=== PATIENT | female | born 1950 | race Caucasian/White ===

== ENCOUNTER 2020-03-02 03:16 | Inpatient (IN) | payer OTHER, MEDICARE ==
[2020-03-02 03:57] LABS: Basophils # (A) 0.1 k/uL (0-0.2); Basophils % (A) 0 %; Eosinophils # (A) 0.3 k/uL (0-0.7); Eosinophils % (A) 1 %; HCT 37.2 % (34.0-46.0); HGB 11.8 gm/dL (11.4-16.0); Lymphocytes # (A) 1.6 k/uL (1.0-4.8); Lymphocytes % (A) 8 %; MCH 29.9 pg (25.0-35.0); MCHC 31.8 g/dL (31.0-37.0); Mean Platelet Volume 7.8; Monocytes % (A) 5 %; Neutrophils # (A) 16.6 k/uL (1.3-7.7); Neutrophils % (A) 84 %; Platelet Count 248 k/uL (150-450); RBC 3.96 m/uL (3.80-5.40); RDW 14.3 % (11.5-15.5); WBC 19.7 k/uL (3.8-10.6)
--- NOTE | 2020-03-02 04:03 | XR ---
EXAMINATION TYPE: XR chest 2V DATE OF EXAM: 03/02/2020 COMPARISON: 09/13/2017 HISTORY: Chest pain TECHNIQUE: FINDINGS: There is pulmonary interstitial edema. There is some blunting of the costophrenic angles. T here are sternal wires. There are chest leads. Bony thorax is intact. IMPRESSION: Congestive heart failure with small pleural effusions is a change compared to old exam.
[2020-03-02 04:10] LABS: Albumin 4.3 g/dL (3.5-5.0); Calcium 10.5 mg/dL (8.4-10.2); Potassium 4.8 mmol/L (3.5-5.1); Total Bilirubin 0.8 mg/dL (0.2-1.3); Total Protein 7.2 g/dL (6.3-8.2)
--- NOTE | 2020-03-02 04:22 | ED ---
SOB HPI - General Chief Complaint: Shortness of Breath Stated Complaint: DEBRA Time Seen by Provider: 03/02/20 03:29 Source: patient, EMS Mode of arrival: EMS Limitations: no limitations - History of Present Illness Initial Comments: Rebeca is a 70-year-old female with extensive cardiac history no known history of COPD though she doesn't that she is a former smoker. Patient is brought to the ER today by ambulance for evaluation of sudden onset of shortness of breath. Patient is currently staying at a friend's house because is no air conditioning at her house the EMS reports that the home she was in was very warm. Upon their arrival patient was in acute respiratory distress with one-word dyspnea, they're unable to establish oxygen saturation up with her on 12 L nonrebreather by the time they got her up to the ambulance reduction saturations were 94% on nonrebreather. Patient reports that the shortness breath began suddenly approximately 1 hour prior to calling EMS, progressively worsened. She states she may have had some brief sharp chest pain prior to the start but no longer is experiencing any chest pain or palpitations. She reports she felt nauseated when she was short of breath waiting for the ambulance, but it resolved when she got oxygen. She has not had any vomiting. No recent fevers or chills. No known sick contacts. - Related Data Home Medications Medication Instructions Recorded Confirmed Allopurinol [Zyloprim] 100 mg PO DAILY 08/03/15 09/21/17 HYDROcodone/APAP 10-325MG [[place] 1 tab PO Q6H PRN 08/03/15 09/21/17 10-325] Levothyroxine Sodium [Synthroid] 175 mcg PO DAILY 08/03/15 09/21/17 glipiZIDE [Glucotrol] 5 mg PO HS 08/03/15 09/21/17 glipiZIDE [Glucotrol] 10 mg PO QAM 08/03/15 09/21/17 Aspirin EC [Ecotrin Low Dose] 81 mg PO DAILY 09/21/17 09/21/17 Hydrochlorothiazide [Hydrodiuril] 50 mg PO DAILY 09/21/17 09/21/17 Melatonin 5 mg PO HS 09/21/17 09/21/17 Previous Rx's Medication Instructions Recorded Atorvastatin [Lipitor] 80 mg PO HS #30 tab 09/26/17 Clopidogrel [Plavix] 75 mg PO DAILY #30 tab 09/26/17 Metoprolol Tartrate [Lopressor] 50 mg PO BID #60 tab 09/26/17 Nitroglycerin Sl Tabs [Nitrostat] 0.4 mg SUBLINGUAL Q5M PRN #25 tab 09/26/17 Temazepam 7.5 mg PO HS PRN #5 cap 09/26/17 amLODIPine [Norvasc] 5 mg PO DAILY #30 tab 09/26/17 metFORMIN HCL [Glucophage] 1,000 mg PO BID #0 09/26/17 Allergies Allergy/AdvReac Type Severity Reaction Status Date / Time Sulfa (Sulfonamide Allergy Unknown Verified 03/02/20 03:26 Antibiotics) ibuprofen [From Motrin] AdvReac Nausea Verified 03/02/20 03:26 Review of Systems ROS Statement: Those systems with pertinent positive or pertinent negative responses have been documented in the HPI. ROS Other: All systems not noted in ROS Statement are negative. Past Medical History Past Medical History: Coronary Artery Disease (CAD), Diabetes Mellitus, Hyperlipidemia, Hypertension, Thyroid Disorder History of Any Multi-Drug Resistant Organisms: None Reported Past Surgical History: Coronary Bypass/CABG Additional Past Surgical History / Comment(s): aortic valve replacement-pig valve Past Anesthesia/Blood Transfusion Reactions: No Reported Reaction Past Psychological History: No Psychological Hx Reported Smoking Status: Former smoker Past Alcohol Use History: None Reported Past Drug Use History: None Reported General Exam - General Exam Comments Initial Comments: Physical Exam GENERAL: Patient is well-developed and well-nourished. Patient is nontoxic and well-hydrated and is in no distress. HENT: Normocephalic, Atraumatic. EYES: PERRL, EOMI PULMONARY: Mild expiratory wheezing CARDIOVASCULAR: There is a regular rate and rhythm without any murmurs gallops or rubs. ABDOMEN: Soft and nontender with normal bowel sounds. SKIN: Skin is clear with no lesions or rashes and otherwise unremarkable. : Deferred NEUROLOGIC: Patient is alert and oriented x3. Moving all extremities spontaneously MUSCULOSKELETAL: Normal extremities with adequate strength and full range of motion. No lower extremity swelling or edema. No calf tenderness. PSYCHIATRIC: Normal psychiatric evaluation. Limitations: no limitations Course Vital Signs 03/02/20 03/02/20 03/02/20 03:19 03:48 05:47 Temperature 98.5 F Pulse Rate 73 62 Respiratory 20 22 18 Rate Blood Pressure 149/80 126/49 O2 Sat by Pulse 98 Oximetry Medical Decision Making - Medical Decision Making Patient was seen and evaluated history is obtained from the patient History and physical exam are concerning for hypoxia, patient was placed on supplemental oxygen 4 L nasal cannula Labs are obtained patient has leukocytosis of unknown significance, detectable but not significantly elevated troponin, acute kidney injury Chest x-ray shows bilateral pleural effusions concerning for congestive heart failure which is new for this patient Patient was taken by wheelchair to the restroom and upon arrival back in the room was found to be hypoxic with an oxygen saturation of 85%, she was again placed on supplemental oxygen via nasal cannula The new onset of heart failure with hypoxia patient will be admitted to the hospital for supple been oxygen and further evaluation of her heart failure - Lab Data Result diagrams: 03/02/20 03:32 03/02/20 03:32 Lab Results 03/02/20 03/02/20 03/02/20 Range/Units 03:32 03:32 03:32 WBC 19.7 H (3.8-10.6) k/uL RBC 3.96 (3.80-5.40) m/uL Hgb 11.8 (11.4-16.0) gm/dL Hct 37.2 (34.0-46.0) % MCV 94.0 (80.0-100.0) fL MCH 29.9 (25.0-35.0) pg MCHC 31.8 (31.0-37.0) g/dL RDW 14.3 (11.5-15.5) % Plt Count 248 (150-450) k/uL Neutrophils % 84 % Lymphocytes % 8 % Monocytes % 5 % Eosinophils % 1 % Basophils % 0 % Neutrophils # 16.6 H (1.3-7.7) k/uL Lymphocytes # 1.6 (1.0-4.8) k/uL Monocytes # 1.0 (0-1.0) k/uL Eosinophils # 0.3 (0-0.7) k/uL Basophils # 0.1 (0-0.2) k/uL PT 10.1 (9.0-12.0) sec INR 1.0 (<1.2) APTT 20.8 L (22.0-30.0) sec Sodium 138 (137-145) mmol/L Potassium 4.8 (3.5-5.1) mmol/L Chloride 106 (98-107) mmol/L Carbon Dioxide 22 (22-30) mmol/L Anion Gap 10 mmol/L BUN 30 H (7-17) mg/dL Creatinine 1.14 H (0.52-1.04) mg/dL Est GFR (CKD-EPI)AfAm 56 (>60 ml/min/1.73 sqM) Est GFR (CKD-EPI)NonAf 48 (>60 ml/min/1.73 sqM) Glucose 303 H (74-99) mg/dL Plasma Lactic Acid Oliver (0.7-2.0) mmol/L Calcium 10.5 H (8.4-10.2) mg/dL Total Bilirubin 0.8 (0.2-1.3) mg/dL AST 26 (14-36) U/L ALT 29 (4-34) U/L Alkaline Phosphatase 135 H (38-126) U/L Troponin I (0.000-0.034) ng/mL NT-Pro-B Natriuret Pep pg/mL Total Protein 7.2 (6.3-8.2) g/dL Albumin 4.3 (3.5-5.0) g/dL 03/02/20 03/02/20 03/02/20 Range/Units 03:32 03:32 03:32 WBC (3.8-10.6) k/uL RBC (3.80-5.40) m/uL Hgb (11.4-16.0) gm/dL Hct (34.0-46.0) % MCV (80.0-100.0) fL MCH (25.0-35.0) pg MCHC (31.0-37.0) g/dL RDW (11.5-15.5) % Plt Count (150-450) k/uL Neutrophils % % Lymphocytes % % Monocytes % % Eosinophils % % Basophils % % Neutrophils # (1.3-7.7) k/uL Lymphocytes # (1.0-4.8) k/uL Monocytes # (0-1.0) k/uL Eosinophils # (0-0.7) k/uL Basophils # (0-0.2) k/uL PT (9.0-12.0) sec INR (<1.2) APTT (22.0-30.0) sec Sodium (137-145) mmol/L Potassium (3.5-5.1) mmol/L Chloride (98-107) mmol/L Carbon Dioxide (22-30) mmol/L Anion Gap mmol/L BUN (7-17) mg/dL Creatinine (0.52-1.04) mg/dL Est GFR (CKD-EPI)AfAm (>60 ml/min/1.73 sqM) Est GFR (CKD-EPI)NonAf (>60 ml/min/1.73 sqM) Glucose (74-99) mg/dL Plasma Lactic Acid Oliver 1.6 (0.7-2.0) mmol/L Calcium (8.4-10.2) mg/dL Total Bilirubin (0.2-1.3) mg/dL AST (14-36) U/L ALT (4-34) U/L Alkaline Phosphatase (38-126) U/L Troponin I 0.029 (0.000-0.034) ng/mL NT-Pro-B Natriuret Pep 984 pg/mL Total Protein (6.3-8.2) g/dL Albumin (3.5-5.0) g/dL - EKG Data -: EKG Interpreted by Me EKG Comments: EKG was obtained to complain of shortness of breath, EKG obtained at 3:25 AM, rate of 73 rhythm is sinus with a left bundle branch block, NE 170 QRS 136 QTC [address] elevations or depressions no evidence of acute ischemia or infarction. This EKG was compared to an EKG from August 2017 there is no significant change in morphology Disposition Clinical Impression: Congestive heart failure, BURKE (acute kidney injury), Hypoxia, Leukocytosis, Hyperglycemia Disposition: ADMITTED IP TO THIS HOSP Condition: Serious Referrals: [facility],Clinic [Primary Care Provider] - 1-2 days
[2020-03-02 04:32] LABS: Prothrombin Time 10.1 sec (9.0-12.0)
[2020-03-02 04:37] LABS: Partial Thromboplastin Time 20.8 sec (22.0-30.0)
[2020-03-02] MEDS ORDERED: FUROSEMIDE 10 MG/ML 4 ML VIAL IV SCH (06:00)
[2020-03-02] MEDS: INSULIN ASPART (NovoLOG) 100 UNIT/ML VIAL SQ SCH ×6 (08:06→21:01)
[2020-03-02 15:21] LABS: Glucose,Whole Blood 249 mg/dL (75-99)
[2020-03-02 15:30] LABS: Glucose,Whole Blood 288 mg/dL (75-99)
[2020-03-02] MEDS ORDERED: ACETAMINOPHEN TAB 500 MG TAB PO PRN (16:21)
[2020-03-02] MEDS ORDERED: NITROGLYCERIN SL TABS 0.4 MG TAB SUBLINGUAL PRN (16:21)
--- NOTE | 2020-03-02 16:30 | P.HPIM ---
History of Present Illness 68-year-old pleasant female came in with plaints of shortness of breath and orthopnea proximal nocturnal distended is comparing of cough without any significant sputum production. Patient apparently was having chest pain earlier today which is pressure-like sensation in the midsternal area. Patient's EKG is consistent with a left bundle branch block which is not new. Patient is bit obese her BNP is around 900 and patient has gone artery disease with cardiac catheterization 2018 patient remains on dual antiplatelet therapy did not miss any of her medications patient had stenting of left circumflex and RCA in the past. Patient had a normal ejection fraction the past. Chest x-ray showing mild pleural effusion and some interstitial pulmonary edema consistent with CHF, no evidence of pneumonia patient does have leukocytosis patient's serum creatinine is 1.14 baseline is around that. First set of troponin is negative. Patient the shortness of breath the sudden onset started today. Chest pain is nonexertional headrest nonradiating mild to moderate resolved at this time not associated diaphoresis nausea lightheadedness Review of Systems REVIEW OF SYSTEMS: CONSTITUTIONAL: No fever, no malaise, no fatigue. HEENT: No recent visual problems or hearing problems. Denied any sore throat. CARDIOVASCULAR: No orthopnea, PND, no palpitations, no syncope. PULMONARY: no hemoptysis. GASTROINTESTINAL: No diarrhea, no nausea, no vomiting, no abdominal pain. NEUROLOGICAL: No headaches, no weakness, no numbness. HEMATOLOGICAL: Denies any bleeding or petechiae. GENITOURINARY: Denies any burning micturition, frequency, or urgency. MUSCULOSKELETAL/RHEUMATOLOGICAL: Denies any joint pain, swelling, or any muscle pain. ENDOCRINE: Denies any polyuria or polydipsia. The rest of the 14-point review of systems is negative. Past Medical History Past Medical History: Coronary Artery Disease (CAD), CVA/TIA, Diabetes Mellitus, GERD/Reflux, Hyperlipidemia, Hypertension, Myocardial Infarction (NE), Osteoarthritis (OA), Thyroid Disorder, Vascular Disorder Additional Past Medical History / Comment(s): IDDM type II, neuropathy bilateral feet, CKD-pt states her labwork is being monitored, murmur, pt states she had prior CVA with no residual, past low back pain, gout bilateral great toes, R carpal tunnel syndrome, hypothyroid, UTI, constipation. Last Myocardial Infarction Date:: 2018 History of Any Multi-Drug Resistant Organisms: None Reported Past Surgical History: Adenoidectomy, Cardiac Valve Replacement, Coronary Bypass/CABG, Heart Catheterization, Joint Replacement, Orthopedic Surgery, Tonsillectomy Additional Past Surgical History / Comment(s): CABG/2 vessel-pt cannot recall year, PCI with 2 stents 2017, aortic valve replaced (pig valve), lumbar epidural injections, L knee arthroscopy, bilateral knee arthroplasty, R foot spur removed, D&C, colonoscopy Past Anesthesia/Blood Transfusion Reactions: Postoperative Nausea & Vomiting (PONV) Smoking Status: Former smoker - Past Family History Father History Unknown: Yes Additional Family Medical History / Comment(s): Father in a MVA when pt was a child. Mother Family Medical History: Coronary Artery Disease (CAD), Diabetes Mellitus Medications and Allergies Home Medications Medication Instructions Recorded Confirmed Type Allopurinol [Zyloprim] 100 mg PO DAILY 08/03/15 03/02/20 History Aspirin EC [Ecotrin Low Dose] 81 mg PO DAILY 09/21/17 03/02/20 History Atorvastatin [Lipitor] 80 mg PO HS #30 tab 09/26/17 03/02/20 Rx Clopidogrel [Plavix] 75 mg PO DAILY #30 tab 09/26/17 03/02/20 Rx Metoprolol Tartrate [Lopressor] 50 mg PO BID #60 tab 09/26/17 03/02/20 Rx Nitroglycerin Sl Tabs [Nitrostat] 0.4 mg SUBLINGUAL Q5M PRN #25 tab 09/26/17 03/02/20 Rx Acetaminophen Tab [Tylenol Tab] 500 mg PO BID PRN 03/02/20 03/02/20 History Amitriptyline HCl [Elavil] 50 mg PO HS 03/02/20 03/02/20 History Insulin Aspart [Insulin Aspart 20 unit SQ TID-W/MEALS 03/02/20 03/02/20 History Flexpen] Insulin Glargine,Hum.rec.anlog 60 unit SQ DAILY 03/02/20 03/02/20 History [Lantus Solostar] Levothyroxine Sodium [Synthroid] 250 mcg PO DAILY 03/02/20 03/02/20 History Losartan [Cozaar] 50 mg PO DAILY 03/02/20 03/02/20 History Polyethylene Glycol 3350 [Miralax] 17 gm PO DAILY 03/02/20 03/02/20 History amLODIPine [Norvasc] 10 mg PO DAILY 03/02/20 03/02/20 History Allergies Allergy/AdvReac Type Severity Reaction Status Date / Time Sulfa (Sulfonamide Allergy Unknown Verified 03/02/20 08:53 Antibiotics) ibuprofen [From Motrin] AdvReac Nausea Verified 03/02/20 08:53 Physical Exam Vitals: Vital Signs Temp Pulse Pulse Resp BP BP Pulse Ox 03/02/20 13:20 98.3 F 75 18 151/66 99 03/02/20 13:00 70 18 141/83 98 03/02/20 10:46 78 17 157/76 96 03/02/20 06:40 133/54 97 03/02/20 05:47 62 18 126/49 03/02/20 03:48 22 03/02/20 03:19 98.5 F 73 20 149/80 98 Intake and Output 03/02/20 03/02/20 03/02/20 06:59 14:59 22:59 Other: # Voids 2 Weight 106.594 kg 106.594 kg PHYSICAL EXAMINATION: GENERAL: The patient is alert and oriented x3, not in any acute distress. Obese HEENT: Pupils are round and equally reacting to light. EOMI. No scleral icterus. No conjunctival pallor. Normocephalic, atraumatic. No pharyngeal erythema. No thyromegaly. CARDIOVASCULAR: S1 and S2 present. No murmurs, rubs, or gallops. PULMONARY: Chest is clear to auscultation, no wheezing or crackles. ABDOMEN: Soft, nontender, nondistended, normoactive bowel sounds. No palpable organomegaly. MUSCULOSKELETAL: No joint swelling or deformity. EXTREMITIES: No cyanosis, clubbing, or pedal edema. NEUROLOGICAL: Gross neurological examination did not reveal any focal deficits. SKIN: No rashes. Results CBC & Chem 7: 03/02/20 03:32 03/02/20 03:32 Labs: Abnormal Lab Results - Last 24 Hours (Table) 03/02/20 03/02/20 03/02/20 Range/Units 03:32 03:32 03:32 WBC 19.7 H (3.8-10.6) k/uL Neutrophils # 16.6 H (1.3-7.7) k/uL APTT 20.8 L (22.0-30.0) sec BUN 30 H (7-17) mg/dL Creatinine 1.14 H (0.52-1.04) mg/dL Glucose 303 H (74-99) mg/dL POC Glucose (mg/dL) (75-99) mg/dL Calcium 10.5 H (8.4-10.2) mg/dL Alkaline Phosphatase 135 H (38-126) U/L 03/02/20 03/02/20 Range/Units 08:00 12:23 WBC (3.8-10.6) k/uL Neutrophils # (1.3-7.7) k/uL APTT (22.0-30.0) sec BUN (7-17) mg/dL Creatinine (0.52-1.04) mg/dL Glucose (74-99) mg/dL POC Glucose (mg/dL) 288 H 249 H (75-99) mg/dL Calcium (8.4-10.2) mg/dL Alkaline Phosphatase (38-126) U/L Thrombosis Risk Factor Assmnt - Choose All That Apply Any of the Below Risk Factors Present?: Yes Each Factor Represents 1 point: Obesity (BMI >25), Swollen legs (current), Varicose veins Each Risk Factor Represents 2 Points: Age 61-74 years Each Risk Factor Represents 3 Points: Positive Lupus Anticoagulant Thrombosis Risk Factor Assessment Total Risk Factor Score: 8 Thrombosis Risk Factor Assessment Level: High Risk Assessment and Plan Plan: -Shortness of breath: Etiology is not clear that there is a competent of CHF I'll obtain echocardiogram patient will be started on Lasix other concern is angina acute coronary syndrome. We will obtain 2 more sets of troponins and EKG cardiology will be consulted. No evidence of COPD exacerbation at this time. I'll also obtain a d-dimer. 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
[2020-03-02] MEDS: ATORVASTATIN 80 MG TAB PO SCH (21:01)
[2020-03-02] MEDS: METOPROLOL TARTRATE 50 MG TAB PO SCH (21:01)
[2020-03-02] MEDS: AMITRIPTYLINE HCL 50 MG TAB PO SCH (21:01)
[2020-03-02] MEDS: FUROSEMIDE 10 MG/ML 4 ML VIAL IV SCH (21:02)
[2020-03-03 07:23] LABS: HCT 30.5 % (34.0-46.0); HGB 10.2 gm/dL (11.4-16.0); MCH 31.1 pg (25.0-35.0); MCHC 33.6 g/dL (31.0-37.0); MCV 92.8 fL (80.0-100.0); Mean Platelet Volume 7.3; Platelet Count 220 k/uL (150-450); RBC 3.29 m/uL (3.80-5.40); RDW 14.1 % (11.5-15.5); WBC 11.8 k/uL (3.8-10.6)
[2020-03-03 07:24] LABS: Glucose,Whole Blood 165 mg/dL (75-99)
[2020-03-03] MEDS: LEVOTHYROXINE 125 MCG TAB PO SCH (07:28)
[2020-03-03 07:38] LABS: Calcium 10.1 mg/dL (8.4-10.2); Potassium 4.4 mmol/L (3.5-5.1)
[2020-03-03] MEDS: INSULIN ASPART (NovoLOG) 100 UNIT/ML VIAL SQ SCH ×7 (08:26→21:41)
[2020-03-03] MEDS: FUROSEMIDE 10 MG/ML 4 ML VIAL IV SCH (09:56)
[2020-03-03] MEDS: LOSARTAN 50 MG TAB PO SCH (09:56)
[2020-03-03] MEDS: ASPIRIN 81 MG PO SCH (09:56)
[2020-03-03] MEDS: ALLOPURINOL 100 MG TAB PO SCH (09:56)
[2020-03-03] MEDS: CLOPIDOGREL 75 MG TAB PO SCH (09:56)
[2020-03-03] MEDS: ENOXAPARIN 40 MG/0.4 ML SYRINGE SQ SCH (09:56)
[2020-03-03] MEDS: METOPROLOL TARTRATE 50 MG TAB PO SCH ×2 (09:56→21:41)
[2020-03-03] MEDS: INSULIN DETEMIR (LEVEMIR) 100 UNIT/ML SYR SQ SCH (09:57)
[2020-03-03] MEDS: POLYETHYLENE GLYCOL 3350 17 GM POWD.PACK PO SCH (09:57)
[2020-03-03 12:07] LABS: Glucose,Whole Blood 191 mg/dL (75-99)
--- NOTE | 2020-03-03 13:53 | P.CRDCN ---
History of Present Illness Consult date: 03/03/20 Consult reason: congestive heart failure Chief complaint: Chest pressure and shortness of breath History of present illness: This is a pleasant 70-year-old female who follows with Dr. VC Medina the office. She has a history of hypertension, diabetes, hyperlipidemia, prior coronary artery bypass grafting surgery and aortic valve replacement, most recent cardiac catheterization was performed in February 2018, it revealed that the vein grafts were occluded, patent GIRON to the LAD, patient at that time underwent stenting of the circumflex and mid right coronary artery. Prior history of smoking, COPD. Presents to the hospital with a fairly sudden onset of shortness of breath and chest pressure which woke her up from sleep in the middle of the night. She does state that prior to that her breathing overall was stable and she has not been experiencing any chest pressure. Her oxygen saturation in the emergency room was 85%. Chest x-ray showed CHF with small bilateral pleural effusions. EKG showed a normal sinus rhythm with a left bundle-branch block pattern. BNP level on admission 1983. Troponin 0.02, 0.98, 0.96. D-dimer 1.5. White blood cell count on admission 19.7, hemoglobin 11.8, platelet count 248. This morning white blood cell count 11.8, hemoglobin 10.2, platelet count 220. Sodium 138, potassium 4.4, BUN 34, creatinine 1.2. Blood pressure 133/60 with a heart rate in the 70s, respirations 16, 95% on 2 L of oxygen. At the time of my examination, patient denies any chest pressure at present, she does still feel somewhat short of breath. Past Medical History Past Medical History: Coronary Artery Disease (CAD), CVA/TIA, Diabetes Mellitus, GERD/Reflux, Hyperlipidemia, Hypertension, Myocardial Infarction (PA), Osteoarthritis (OA), Thyroid Disorder, Vascular Disorder Additional Past Medical History / Comment(s): IDDM type II, neuropathy bilateral feet, CKD-pt states her labwork is being monitored, murmur, pt states she had prior CVA with no residual, past low back pain, gout bilateral great toes, R carpal tunnel syndrome, hypothyroid, UTI, constipation. Last Myocardial Infarction Date:: 2017 History of Any Multi-Drug Resistant Organisms: None Reported Past Surgical History: Adenoidectomy, Cardiac Valve Replacement, Coronary Bypas s/CABG, Heart Catheterization, Joint Replacement, Orthopedic Surgery, Tonsillectomy Additional Past Surgical History / Comment(s): CABG/2 vessel-pt cannot recall year, PCI with 2 stents 2017, aortic valve replaced (pig valve), lumbar epidural injections, L knee arthroscopy, bilateral knee arthroplasty, R foot spur removed, D&C, colonoscopy Past Anesthesia/Blood Transfusion Reactions: Postoperative Nausea & Vomiting (PONV) Smoking Status: Former smoker - Past Family History Father History Unknown: Yes Additional Family Medical History / Comment(s): Father in a MVA when pt was a child. Mother Family Medical History: Coronary Artery Disease (CAD), Diabetes Mellitus Medications and Allergies Home Medications Medication Instructions Recorded Confirmed Type Allopurinol [Zyloprim] 100 mg PO DAILY 08/03/15 03/02/20 History Aspirin EC [Ecotrin Low Dose] 81 mg PO DAILY 09/21/17 03/02/20 History Atorvastatin [Lipitor] 80 mg PO HS #30 tab 09/26/17 03/02/20 Rx Clopidogrel [Plavix] 75 mg PO DAILY #30 tab 09/26/17 03/02/20 Rx Metoprolol Tartrate [Lopressor] 50 mg PO BID #60 tab 09/26/17 03/02/20 Rx Nitroglycerin Sl Tabs [Nitrostat] 0.4 mg SUBLINGUAL Q5M PRN #25 tab 09/26/17 03/02/20 Rx Acetaminophen Tab [Tylenol Tab] 500 mg PO BID PRN 03/02/20 03/02/20 History Amitriptyline HCl [Elavil] 50 mg PO HS 03/02/20 03/02/20 History Insulin Aspart [Insulin Aspart 20 unit SQ TID-W/MEALS 03/02/20 03/02/20 History Flexpen] Insulin Glargine,Hum.rec.anlog 60 unit SQ DAILY 03/02/20 03/02/20 History [Lantus Solostar] Levothyroxine Sodium [Synthroid] 250 mcg PO DAILY 03/02/20 03/02/20 History Losartan [Cozaar] 50 mg PO DAILY 03/02/20 03/02/20 History Polyethylene Glycol 3350 [Miralax] 17 gm PO DAILY 03/02/20 03/02/20 History amLODIPine [Norvasc] 10 mg PO DAILY 03/02/20 03/02/20 History Allergies Allergy/AdvReac Type Severity Reaction Status Date / Time Sulfa (Sulfonamide Allergy Unknown Verified 03/02/20 08:53 Antibiotics) ibuprofen [From Motrin] AdvReac Nausea Verified 03/02/20 08:53 Physical Exam Vitals: Vital Signs Temp Pulse Resp BP Pulse Ox 03/03/20 12:00 66 20 03/03/20 08:00 97.7 F 66 20 151/69 98 03/03/20 04:00 97.6 F 73 16 133/60 95 03/02/20 23:33 97.8 F 64 16 141/64 95 03/02/20 20:00 97.7 F 74 17 153/65 98 03/02/20 16:00 97.5 F L 73 18 146/66 99 Intake and Output 03/02/20 03/03/20 03/03/20 22:59 06:59 14:59 Intake Total 240 Balance 240 Intake: Oral 240 Other: Voiding Method Toilet Toilet Toilet # Voids 2 1 1 Weight 109.4 kg 109.4 kg PHYSICAL EXAMINATION: GENERAL: 70-year-old female in no acute distress at the time of my examination HEENT: Head is atraumatic, normocephalic. Pupils equal, round. Sclera anicteric. Conjunctiva are clear. Mucous membranes of the mouth are moist. Neck is supple. There is elevated jugular venous pressure. Bilateral carotid bruit is heard. HEART EXAMINATION: Heart S1 S2 1 systolic ejection murmur is heard CHEST EXAMINATION: Lungs are clear with mild diminished air entry to the bases. No chest wall tenderness is noted on palpation or with deep breathing. ABDOMEN: Soft, nontender. Bowel sounds are heard. No organomegaly noted. EXTREMITIES: 2+ peripheral pulses with trace evidence of peripheral edema and no calf tenderness noted. NEUROLOGIC patient is awake, alert and oriented X3. . Results 03/03/20 06:47 03/03/20 06:47 Cardiac Enzymes 03/02/20 03/02/20 Range/Units 20:00 23:09 Troponin I 0.980 H* 0.966 H* (0.000-0.034) ng/mL CBC 03/03/20 Range/Units 06:47 WBC 11.8 H (3.8-10.6) k/uL RBC 3.29 L (3.80-5.40) m/uL Hgb 10.2 L (11.4-16.0) gm/dL Hct 30.5 L (34.0-46.0) % Plt Count 220 (150-450) k/uL Comprehensive Metabolic Panel 03/03/20 Range/Units 06:47 Sodium 138 (137-145) mmol/L Potassium 4.4 (3.5-5.1) mmol/L Chloride 106 (98-107) mmol/L Carbon Dioxide 25 (22-30) mmol/L BUN 34 H (7-17) mg/dL Creatinine 1.21 H (0.52-1.04) mg/dL Glucose 157 H (74-99) mg/dL Calcium 10.1 (8.4-10.2) mg/dL Current Medications Generic Name Dose Route Start Last Admin Trade Name Freq PRN Reason Stop Dose Admin Acetaminophen 500 mg 03/02/20 16:21 Tylenol Tab PO BID PRN Pain or Fever > 100.5 Allopurinol 100 mg 03/03/20 09:00 03/03/20 09:56 Zyloprim PO 100 mg DAILY PATRICK Administration Amitriptyline HCl 50 mg 03/02/20 21:00 03/02/20 21:01 Elavil PO 50 mg HS PATRICK Administration Aspirin 81 mg 03/03/20 09:00 03/03/20 09:56 Aspirin PO 81 mg DAILY PATRICK Administration Atorvastatin Calcium 80 mg 03/02/20 21:00 03/02/20 21:01 Lipitor PO 80 mg HS PATRICK Administration Clopidogrel Bisulfate 75 mg 03/03/20 09:00 03/03/20 09:56 Plavix PO 75 mg DAILY PATRICK Administration Enoxaparin Sodium 40 mg 03/03/20 09:00 03/03/20 09:56 Lovenox SQ 40 mg DAILY PATRICK Administration Insulin Aspart 0 unit 03/02/20 07:30 03/03/20 12:57 Novolog SQ 3 unit ACHS PATRICK Administration Protocol Insulin Aspart 20 unit 03/02/20 17:30 03/03/20 12:56 Novolog SQ 20 unit TID-W/MEALS PATRICK Administration Insulin Detemir 60 unit 03/03/20 07:00 03/03/20 09:57 Levemir SQ 60 unit DAILY@0700 PATRICK Administration Levothyroxine Sodium 250 mcg 03/03/20 06:30 03/03/20 07:28 Synthroid PO 250 mcg 0630 PATRICK Administration Losartan Potassium 50 mg 03/03/20 09:00 03/03/20 09:56 Cozaar PO 50 mg DAILY PATRICK Administration Metoprolol Tartrate 50 mg 03/02/20 21:00 03/03/20 09:56 Lopressor PO 50 mg BID PATRICK Administration Nitroglycerin 0.4 mg 03/02/20 16:21 Nitrostat SUBLINGUAL Q5M PRN Chest Pain Polyethylene Glycol 17 gm 03/03/20 09:00 03/03/20 09:57 Miralax PO 17 gm DAILY PATRICK Administration Intake and Output 03/02/20 03/03/20 03/03/20 22:59 06:59 14:59 Intake Total 240 Balance 240 Intake: Oral 240 Other: Voiding Method Toilet Toilet Toilet # Voids 2 1 1 Weight 109.4 kg 109.4 kg Patient Weight 03/04/20 06:59 Weight 109.4 kg 03/03/20 06:47 03/03/20 06:47 EKG Interpretations (text) EKG shows a normal sinus rhythm with a left bundle-branch block pattern Assessment and Plan Plan: Assessment and plan #1 symptoms of shortness of breath with associated chest pressure. Mild element of congestive cardiac failure, we will start a low-dose of IV Lasix. D-dimer is also positive, we'll request a CTA of the chest to rule out PE. Troponins 0.029, 0.98, 0.966. Possible acute coronary syndrome. #2 hypertension #3 diabetes #4 hyperlipidemia #5 coronary artery disease with prior bypass surgery, most recent cardiac catheterization in 2018 patient underwent stenting of the circumflex and mid RCA, at that time the vein grafts were occluded, patent GIRON to the LAD #6 aortic valve replacement #7 prior history of smoking #8 COPD Plan We will start the patient on IV diuretics for today, she will need to undergo cardiac catheterization, the risks and the benefits were explained to her in detail, this will tentatively be booked on Friday. We will also request a CTA of the chest be performed to rule out the possibility of pulmonary embolism. Further recommendations to follow. DNP note has been reviewed, I agree with a documented findings and plan of care. Patient was seen and examined.
--- NOTE | 2020-03-03 14:06 | P.PN ---
Subjective Progress Note Date: 03/03/20 Principal diagnosis: 68-year-old pleasant female came in with plaints of shortness of breath and orthopnea proximal nocturnal distended is comparing of cough without any significant sputum production. Patient apparently was having chest pain earlier today which is pressure-like sensation in the midsternal area. Patient's EKG is consistent with a left bundle branch block which is not new. Patient is bit obese her BNP is around 900 and patient has gone artery disease with cardiac catheterization 2017 patient remains on dual antiplatelet therapy did not miss any of her medications patient had stenting of left circumflex and RCA in the past. Patient had a normal ejection fraction the past. Chest x-ray showing mild pleural effusion and some interstitial pulmonary edema consistent with CHF, no evidence of pneumonia patient does have leukocytosis patient's serum creatin ine is 1.14 baseline is around that. First set of troponin is negative. Patient the shortness of breath the sudden onset started today. Chest pain is nonexertional headrest nonradiating mild to moderate resolved at this time not associated diaphoresis nausea lightheadedness 03/03/2020 Patient is seen and evaluated in follow-up and currently remains on 4 L of oxygen via nasal cannula. Patient is being seen and evaluated by cardiology and echo has been obtained but is currently pending. Patient had some elevated troponins and patient will potentially need cardiac catheterization. Patient had a chest x-ray showing some mild pleural effusions along with urinary edema and was initiated on Lasix although was discontinued. Current creatinine is slightly elevated at 1.21. Currently patient denies any chest pain, worsening shortness of breath, or palpitations. Patient is afebrile. No reports of nausea or vomiting and patient is tolerating diet. Patient also had a d-dimer which was elevated and will be obtaining a CTA to assess for pulmonary embolism. Objective - Vital Signs Vital signs: Vital Signs Temp 97.7 F 03/03/20 08:00 Pulse 66 03/03/20 12:00 Resp 20 03/03/20 12:00 BP 151/69 03/03/20 08:00 Pulse Ox 98 03/03/20 08:00 Intake & Output 03/02/20 03/03/20 03/03/20 18:59 06:59 18:59 Intake Total 240 Balance 240 Weight 106.594 kg 109.4 kg 109.4 kg Intake: Oral 240 Other: Voiding Method Toilet Toilet # Voids 2 1 1 - Exam GENERAL: The patient is alert and oriented x3, not in any acute distress. Obese HEENT: Pupils are round and equally reacting to light. EOMI. No scleral icterus. No conjunctival pallor. Normocephalic, atraumatic. No pharyngeal erythema. No thyromegaly. CARDIOVASCULAR: S1 and S2 present. No murmurs, rubs, or gallops. PULMONARY: Chest is clear to auscultation, no wheezing or crackles. ABDOMEN: Soft, nontender, nondistended, normoactive bowel sounds. No palpable organomegaly. MUSCULOSKELETAL: No joint swelling or deformity. EXTREMITIES: No cyanosis, clubbing, or pedal edema. NEUROLOGICAL: Gross neurological examination did not reveal any focal deficits. SKIN: No rashes. - Labs CBC & Chem 7: 03/03/20 06:47 03/03/20 06:47 Labs: Abnormal Lab Results - Last 24 Hours (Table) 03/02/20 03/02/20 03/02/20 Range/Units 08:00 12:23 18:35 WBC (3.8-10.6) k/uL RBC (3.80-5.40) m/uL Hgb (11.4-16.0) gm/dL Hct (34.0-46.0) % D-Dimer 1.59 H (<0.60) mg/L FEU BUN (7-17) mg/dL Creatinine (0.52-1.04) mg/dL Glucose (74-99) mg/dL POC Glucose (mg/dL) 288 H 249 H (75-99) mg/dL Troponin I (0.000-0.034) ng/mL 03/02/20 03/02/20 03/03/20 Range/Units 20:00 23:09 06:47 WBC 11.8 H (3.8-10.6) k/uL RBC 3.29 L (3.80-5.40) m/uL Hgb 10.2 L (11.4-16.0) gm/dL Hct 30.5 L (34.0-46.0) % D-Dimer (<0.60) mg/L FEU BUN (7-17) mg/dL Creatinine (0.52-1.04) mg/dL Glucose (74-99) mg/dL POC Glucose (mg/dL) (75-99) mg/dL Troponin I 0.980 H* 0.966 H* (0.000-0.034) ng/mL 03/03/20 03/03/20 03/03/20 Range/Units 06:47 07:22 12:05 WBC (3.8-10.6) k/uL RBC (3.80-5.40) m/uL Hgb (11.4-16.0) gm/dL Hct (34.0-46.0) % D-Dimer (<0.60) mg/L FEU BUN 34 H (7-17) mg/dL Creatinine 1.21 H (0.52-1.04) mg/dL Glucose 157 H (74-99) mg/dL POC Glucose (mg/dL) 165 H 191 H (75-99) mg/dL Troponin I (0.000-0.034) ng/mL Assessment and Plan Assessment: -Shortness of breath: Etiology is not clear that there is a component of CHF, echo obtained in currently pending. Cardiology following. Patient was initiated on IV Lasix and discontinued at this time. 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 Cardiology following. Echo ordered and currently pending at this time. Patient had some elevated troponins and may possibly need cardiac catheterization in the near future. Tentatively scheduled for Friday. Will continue to monitor labs and vital signs closely. D-dimer was elevated at 1.59 and will obtain CTA to assess for possible PE. Patient is maintained on aspirin and Plavix and will continue at this time. Further recommendations to follow.
[2020-03-03 14:09] LABS: Glucose,Whole Blood 233 mg/dL (75-99)
[2020-03-03 14:09] LABS: Glucose,Whole Blood 244 mg/dL (75-99)
[2020-03-03 16:37] LABS: Glucose,Whole Blood 144 mg/dL (75-99)
--- NOTE | 2020-03-03 16:54 | CT ---
EXAMINATION TYPE: CT angio chest DATE OF EXAM: 03/03/2020 4:29 PM COMPARISON: X-ray 03/02/2020 HISTORY: Difficulty breathing. CT DLP: 607.3 mGycm Automated exposure control for dose reduction was used. CONTRAST: CTA scan of the thorax is performed with IV Contrast, patient injected with 80 mL of Isovue 370, pulm onary embolism protocol. . FINDINGS: LUNGS: There are diffuse interstitial pattern and groundglass changes with bilateral consolidation an d small effusion. No pneumothorax. MEDIASTINUM: Assessment aorta is markedly limited due to extensive overlying artifact appears to be g rossly of normal caliber. Artifact at the level of the origin of the pulmonary artery limits its asse ssment. Right main pulmonary artery also limited. Linear density at the origin of the pulmonary arter y likely related to pulmonic valve. Remaining portion of the pulmonary artery appear to be patent wit h normal enhancement. Calcified lymph nodes are seen in the hilum. Heart is prominent with no sizable pericardial effusion. Sternotomy changes are noted. OTHER: Tiny granuloma seen in the liver and spleen and there is a tiny gallstone. Hypertrophic and d egenerative change of the spine. IMPRESSION: Limited exam due to extensive artifact 1. Bilateral effusion and consolidation correlate for CHF. 2. Artifact limits portions of the pulmonary arteries including the proximal main pulmonary artery an d the right main pulmonary artery. Linear defect involving the proximal main pulmonary artery is note d but this could possibly be related artifact and/or the pulmonic valve. Cannot exclude a pulmonary e mbolism within the proximal secondary branch of the right upper lobe pulmonary artery. Given limitati on exam recommended follow-up VQ scan.
[2020-03-03 20:41] LABS: Glucose,Whole Blood 182 mg/dL (75-99)
[2020-03-03] MEDS: ATORVASTATIN 80 MG TAB PO SCH (21:41)
[2020-03-03] MEDS: AMITRIPTYLINE HCL 50 MG TAB PO SCH (21:41)
[2020-03-04] MEDS: LEVOTHYROXINE 125 MCG TAB PO SCH (05:55)
[2020-03-04 06:39] LABS: Glucose,Whole Blood 92 mg/dL (75-99)
[2020-03-04 06:49] LABS: Basophils % (A) 1 %; Eosinophils # (A) 0.3 k/uL (0-0.7); Eosinophils % (A) 3 %; HGB 11.3 gm/dL (11.4-16.0); Lymphocytes # (A) 2.3 k/uL (1.0-4.8); Lymphocytes % (A) 23 %; MCH 31.8 pg (25.0-35.0); MCHC 34.2 g/dL (31.0-37.0); MCV 93.1 fL (80.0-100.0); Mean Platelet Volume 7.4; Monocytes # (A) 0.6 k/uL (0-1.0); Monocytes % (A) 6 %; Neutrophils # (A) 6.7 k/uL (1.3-7.7); Neutrophils % (A) 67 %; Platelet Count 249 k/uL (150-450); RBC 3.55 m/uL (3.80-5.40); RDW 14.1 % (11.5-15.5)
[2020-03-04] MEDS: INSULIN DETEMIR (LEVEMIR) 100 UNIT/ML SYR SQ SCH (06:50)
[2020-03-04 07:03] LABS: Calcium 10.4 mg/dL (8.4-10.2); Potassium 4.2 mmol/L (3.5-5.1)
[2020-03-04] MEDS: INSULIN ASPART (NovoLOG) 100 UNIT/ML VIAL SQ SCH ×7 (07:23→21:20)
--- NOTE | 2020-03-04 09:10 | NM ---
EXAMINATION TYPE: NM pul vent and perfuse DATE OF EXAM: 03/04/2020 COMPARISON: NONE HISTORY: Elevated d-dimer, shortness of breath TECHNIQUE: Utilizing inhalation of 36.3 mCi Tc 99m DTPA aerosol and intravenous injection of 4.3 mCi of Tc 99m MAA, ventilation and perfusion images are acquired post injection in multiple projections. FINDINGS: Normal radiotracer distribution is noted in the lungs. There is no evidence of mismatched defects. IMPRESSION: Very low probability for pulmonary embolism.
[2020-03-04] MEDS: METOPROLOL TARTRATE 50 MG TAB PO SCH ×2 (09:14→20:10)
[2020-03-04] MEDS: ASPIRIN 81 MG PO SCH (09:14)
[2020-03-04] MEDS: CLOPIDOGREL 75 MG TAB PO SCH (09:14)
[2020-03-04] MEDS: ENOXAPARIN 40 MG/0.4 ML SYRINGE SQ SCH (09:14)
[2020-03-04] MEDS: LOSARTAN 50 MG TAB PO SCH (09:14)
[2020-03-04] MEDS: ALLOPURINOL 100 MG TAB PO SCH (09:14)
[2020-03-04] MEDS: POLYETHYLENE GLYCOL 3350 17 GM POWD.PACK PO SCH (10:52)
--- NOTE | 2020-03-04 11:17 | P.PN ---
Subjective 68-year-old pleasant female came in with plaints of shortness of breath and orthopnea proximal nocturnal distended is comparing of cough without any significant sputum production. Patient apparently was having chest pain earlier today which is pressure-like sensation in the midsternal area. Patient's EKG is consistent with a left bundle branch block which is not new. Patient is bit obese her BNP is around 900 and patient has gone artery disease with cardiac catheterization 2018 patient remains on dual antiplatelet therapy did not miss any of her medications patient had stenting of left circumflex and RCA in the past. Patient had a normal ejection fraction the past. Chest x-ray showing mild pleural effusion and some interstitial pulmonary edema consistent with CHF, no evidence of pneumonia patient does have leukocytosis patient's serum creatinine is 1.14 baseline is around that. First set of troponin is negative. Patient the shortness of breath the sudden onset started today. Chest pain is nonexertional headrest nonradiating mild to moderate resolved at this time not associated diaphoresis nausea lightheadedness 03/03/2020 Patient is seen and evaluated in follow-up and currently remains on 4 L of oxygen via nasal cannula. Patient is being seen and evaluated by cardiology and echo has been obtained but is currently pending. Patient had some elevated troponins and patient will potentially need cardiac catheterization. Patient had a chest x-ray showing some mild pleural effusions along with urinary edema and was initiated on Lasix although was discontinued. Current creatinine is slightly elevated at 1.21. Currently patient denies any chest pain, worsening shortness of breath, or palpitations. Patient is afebrile. No reports of nausea or vomiting and patient is tolerating diet. Patient also had a d-dimer which was elevated and will be obtaining a CTA to assess for pulmonary embolism. 03/04/2020 Valerie patient's creatinine is bit worse and spread which is started on Lasix because CT angios the chest is showing some pulmonary edema VQ scan showed low probably for PE and not sure why VQ scan was obtained as well. Since the patient's creatinine went up I'm holding on angiotensin receptor eder temp orarily. Patient is scheduled to undergo cardiac catheterization on Friday. Constitutional: Denied any fatigue denied any fever. Cardio vascular: denied any chest pain, palpitations Gastrointestinal denied any nausea vomiting Pulmonary: shortness of breath improved significantly Neurologic denied any new focal deficits All inpatient medications were reviewed and appropriate changes in these med ications as dictated in the interval history and assessment and plan. Objective - Vital Signs Vital signs: Vital Signs Temp 97.7 F 03/04/20 08:00 Pulse 64 03/04/20 08:00 Resp 18 03/04/20 08:00 BP 135/61 03/04/20 08:00 Pulse Ox 94 L 03/04/20 08:00 Intake & Output 03/03/20 03/04/20 03/04/20 18:59 06:59 18:59 Intake Total 360 240 Balance 360 240 Weight 109.4 kg 108.5 kg Intake: Oral 360 240 Other: Voiding Method Toilet Toilet Toilet # Voids 3 1 - Exam GENERAL: The patient is alert and oriented x3, not in any acute distress. Obese HEENT: Pupils are round and equally reacting to light. EOMI. No scleral icterus. No conjunctival pallor. Normocephalic, atraumatic. No pharyngeal erythema. No thyromegaly. CARDIOVASCULAR: S1 and S2 present. No murmurs, rubs, or gallops. PULMONARY: Chest is clear to auscultation, no wheezing or crackles. ABDOMEN: Soft, nontender, nondistended, normoactive bowel sounds. No palpable organomegaly. MUSCULOSKELETAL: No joint swelling or deformity. EXTREMITIES: No cyanosis, clubbing, or pedal edema. NEUROLOGICAL: Gross neurological examination did not reveal any focal deficits. SKIN: No rashes. - Labs CBC & Chem 7: 03/04/20 06:00 03/04/20 06:00 Labs: Abnormal Lab Results - Last 24 Hours (Table) 03/02/20 03/02/20 03/03/20 Range/Units 16:33 20:56 12:05 RBC (3.80-5.40) m/uL Hgb (11.4-16.0) gm/dL Hct (34.0-46.0) % BUN (7-17) mg/dL Creatinine (0.52-1.04) mg/dL POC Glucose (mg/dL) 244 H 233 H 191 H (75-99) mg/dL Calcium (8.4-10.2) mg/dL 03/03/20 03/03/20 03/04/20 Range/Units 16:36 20:39 06:00 RBC 3.55 L (3.80-5.40) m/uL Hgb 11.3 L (11.4-16.0) gm/dL Hct 33.0 L (34.0-46.0) % BUN (7-17) mg/dL Creatinine (0.52-1.04) mg/dL POC Glucose (mg/dL) 144 H 182 H (75-99) mg/dL Calcium (8.4-10.2) mg/dL 03/04/20 Range/Units 06:00 RBC (3.80-5.40) m/uL Hgb (11.4-16.0) gm/dL Hct (34.0-46.0) % BUN 41 H (7-17) mg/dL Creatinine 1.42 H (0.52-1.04) mg/dL POC Glucose (mg/dL) (75-99) mg/dL Calcium 10.4 H (8.4-10.2) mg/dL Assessment and Plan Plan: -Shortness of breath: secondary to acute coronary syndrome, non-ST elevation myocardial infarction, mild CHF exacerbation patient will continue her Lasix hold off losartan because of the kidney function and she'll undergo cardiac catheterization Friday -Chest pain: possibly secondary to non-ST elevation myocardial infarction 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
[2020-03-04 12:24] LABS: Glucose,Whole Blood 178 mg/dL (75-99)
[2020-03-04] MEDS: FUROSEMIDE 10 MG/ML 2 ML VIAL IV SCH ×2 (12:25→20:10)
--- NOTE | 2020-03-04 14:20 | P.PN ---
Subjective Progress Note Date: 03/04/20 This is a pleasant 70-year-old female who follows with Dr. VC Medina the office. She has a history of hypertension, diabetes, hyperlipidemia, prior coronary artery bypass grafting surgery and aortic valve replacement, most recent cardiac catheterization was performed in February 2018, it revealed that the vein grafts were occluded, patent GIRON to the LAD, patient at that time underwent stenting of the circumflex and mid right coronary artery. Prior history of smoking, COPD. Presents to the hospital with a fairly sudden onset of shortness of breath and chest pressure which woke her up from sleep in the middle of the night. She does state that prior to that her breathing overall was stable and she has not been experiencing any chest pressure. Her oxygen saturation in the emergency room was 85%. Chest x-ray showed CHF with small bilateral pleural effusions. EKG showed a normal sinus rhythm with a left bundle-branch block pattern. BNP level on admission 1984. Troponin 0.02, 0.98, 0.96. D-dimer 1.5. White blood cell count on admission 19.7, hemoglobin 11.8, platelet count 248. This morning white blood cell count 11.8, hemoglobin 10.2, platelet count 220. Sodium 138, potassium 4.4, BUN 34, creatinine 1.2. Blood pressure 133/60 with a heart rate in the 70s, respirations 16, 95% on 2 L of oxygen. At the time of my examination, patient denies any chest pressure at present, she does still feel somewhat short of breath. 03/04: The patient has been on Lasix as of yesterday every 8 hours. She states her breathing is much improved. She states she was up to the bathroom and urinated frequently. She denies having any lightheadedness or dizziness. She underwent CTA of the chest after d-dimer was elevated that found artifact and was inconclusive. VQ scan was low probability for ulnar embolism. She is scheduled for heart catheterization on Friday. She did have increase in her renal function with BUN of 41 and creatinine 1.42. PHYSICAL EXAMINATION: GENERAL: 70-year-old female in no acute distress at the time of my examination HEENT: Head is atraumatic, normocephalic. Pupils equal, round. Sclera anicteric. Conjunctiva are clear. Mucous membranes of the mouth are moist. Neck is supple. HEART EXAMINATION: Heart S1 S2 systolic ejection murmur. CHEST EXAMINATION: Lungs are clear with mild diminished air entry to the bases. No chest wall tenderness is noted on palpation or with deep breathing. ABDOMEN: Soft, nontender. Bowel sounds are heard. No organomegaly noted. EXTREMITIES: 2+ peripheral pulses with no pedal edema and no calf tenderness noted. NEUROLOGIC patient is awake, alert and oriented X3. Assessment #1 symptoms of shortness of breath with associated chest pressure. Mild element of congestive cardiac failure, we will start a low-dose of IV Lasix. Possible acute coronary syndrome. #2 hypertension #3 diabetes #4 hyperlipidemia #5 coronary artery disease with prior bypass surgery, most recent cardiac catheterization in 2018 patient underwent stenting of the circumflex and mid RCA, at that time the vein grafts were occluded, patent GIRON to the LAD #6 aortic valve replacement #7 prior history of smoking #8 COPD #9 pulmonary embolism was ruled out by VQ scan #10 Plan Losartan was discontinued due to acute kidney injury Lasix has been decreased to 20 mg IV every 12 hours Echocardiogram report is pending Monitor electrolytes and renal function Patient is tentatively scheduled for cardiac catheterization on Friday. Risks and the benefits were explained to her in detail Further recommendations to follow. Nurse practitioner note has been reviewed, I agree with the documented findings and plan of care. Patient was seen and examined. Objective - Vital Signs Vital signs: Vital Signs Temp 97.7 F 03/04/20 08:00 Pulse 64 03/04/20 08:00 Resp 18 03/04/20 08:00 BP 135/61 03/04/20 08:00 Pulse Ox 94 L 03/04/20 08:00 Intake & Output 03/03/20 03/04/20 03/04/20 18:59 06:59 18:59 Intake Total 360 240 Balance 360 240 Weight 109.4 kg 108.5 kg Intake: Oral 360 240 Other: Voiding Method Toilet Toilet Toilet # Voids 3 1 - Labs CBC & Chem 7: 03/04/20 06:00 03/04/20 06:00 Labs: Abnormal Lab Results - Last 24 Hours (Table) 03/02/20 03/02/20 03/03/20 Range/Units 16:33 20:56 12:05 RBC (3.80-5.40) m/uL Hgb (11.4-16.0) gm/dL Hct (34.0-46.0) % BUN (7-17) mg/dL Creatinine (0.52-1.04) mg/dL POC Glucose (mg/dL) 244 H 233 H 191 H (75-99) mg/dL Calcium (8.4-10.2) mg/dL 03/03/20 03/03/20 03/04/20 Range/Units 16:36 20:39 06:00 RBC 3.55 L (3.80-5.40) m/uL Hgb 11.3 L (11.4-16.0) gm/dL Hct 33.0 L (34.0-46.0) % BUN (7-17) mg/dL Creatinine (0.52-1.04) mg/dL POC Glucose (mg/dL) 144 H 182 H (75-99) mg/dL Calcium (8.4-10.2) mg/dL 03/04/20 Range/Units 06:00 RBC (3.80-5.40) m/uL Hgb (11.4-16.0) gm/dL Hct (34.0-46.0) % BUN 41 H (7-17) mg/dL Creatinine 1.42 H (0.52-1.04) mg/dL POC Glucose (mg/dL) (75-99) mg/dL Calcium 10.4 H (8.4-10.2) mg/dL
[2020-03-04 17:43] LABS: Glucose,Whole Blood 81 mg/dL (75-99)
[2020-03-04] MEDS: AMITRIPTYLINE HCL 50 MG TAB PO SCH (20:10)
[2020-03-04] MEDS: ATORVASTATIN 80 MG TAB PO SCH (20:10)
[2020-03-04 20:22] LABS: Glucose,Whole Blood 136 mg/dL (75-99)
[2020-03-05] MEDS: LEVOTHYROXINE 125 MCG TAB PO SCH (06:52)
[2020-03-05 07:14] LABS: Potassium 4.5 mmol/L (3.5-5.1)
[2020-03-05 07:22] LABS: Glucose,Whole Blood 181 mg/dL (75-99)
[2020-03-05] MEDS: INSULIN ASPART (NovoLOG) 100 UNIT/ML VIAL SQ SCH ×7 (08:08→20:16)
[2020-03-05] MEDS: CLOPIDOGREL 75 MG TAB PO SCH (08:08)
[2020-03-05] MEDS: ALLOPURINOL 100 MG TAB PO SCH (08:08)
[2020-03-05] MEDS: INSULIN DETEMIR (LEVEMIR) 100 UNIT/ML SYR SQ SCH (08:08)
[2020-03-05] MEDS: ASPIRIN 81 MG PO SCH (08:08)
[2020-03-05] MEDS: ENOXAPARIN 40 MG/0.4 ML SYRINGE SQ SCH (08:08)
[2020-03-05] MEDS: FUROSEMIDE 10 MG/ML 2 ML VIAL IV SCH (08:09)
[2020-03-05] MEDS: POLYETHYLENE GLYCOL 3350 17 GM POWD.PACK PO SCH (08:09)
[2020-03-05] MEDS: METOPROLOL TARTRATE 50 MG TAB PO SCH ×2 (08:11→20:16)
[2020-03-05 12:34] LABS: Glucose,Whole Blood 67 mg/dL (75-99)
[2020-03-05 12:50] LABS: Glucose,Whole Blood 74 mg/dL (75-99)
--- NOTE | 2020-03-05 12:57 | P.PN ---
Subjective Progress Note Date: 03/05/20 This is a pleasant 70-year-old female who follows with Dr. VC Medina the office. She has a history of hypertension, diabetes, hyperlipidemia, prior coronary artery bypass grafting surgery and aortic valve replacement, most recent cardiac catheterization was performed in February 2018, it revealed that the vein grafts were occluded, patent GIRON to the LAD, patient at that time underwent stenting of the circumflex and mid right coronary artery. Prior history of smoking, COPD. Presents to the hospital with a fairly sudden onset of shortness of breath and chest pressure which woke her up from sleep in the middle of the night. She does state that prior to that her breathing overall was stable and she has not been experiencing any chest pressure. Her oxygen saturation in the emergency room was 85%. Chest x-ray showed CHF with small bilateral pleural effusions. EKG showed a normal sinus rhythm with a left bundle-branch block pattern. BNP level on admission 1984. Troponin 0.02, 0.98, 0.96. D-dimer 1.5. White blood cell count on admission 19.7, hemoglobin 11.8, platelet count 248. This morning white blood cell count 11.8, hemoglobin 10.2, platelet count 220. Sodium 138, potassium 4.4, BUN 34, creatinine 1.2. Blood pressure 133/60 with a heart rate in the 70s, respirations 16, 95% on 2 L of oxygen. At the time of my examination, patient denies any chest pressure at present, she does still feel somewhat short of breath. 03/04: The patient has been on Lasix as of yesterday every 8 hours. She states her breathing is much improved. She states she was up to the bathroom and urinated frequently. She denies having any lightheadedness or dizziness. She underwent CTA of the chest after d-dimer was elevated that found artifact and was inconclusive. VQ scan was low probability for ulnar embolism. She is scheduled for heart catheterization on Friday. She did have increase in her renal function with BUN of 41 and creatinine 1.42. 03/05: The patient denies having any chest pain or shortness of breath and generally feels she is feeling well. Renal function today reveals BUN 45 and creatinine 1.47. Lasix IV has been discontinued. Discussed with patient that heart catheterization may be postponed for Friday depending on what her renal function is in the morning. At this time, we will plan to make patient nothing by mouth at midnight and recheck lab work in the morning. If improved, patient was likely will undergo heart catheterization tomorrow. Physical examination GENERAL: 70-year-old female in no acute distress at the time of my examination HEENT: Head is atraumatic, normocephalic. Pupils equal, round. Sclera an icteric. Conjunctiva are clear. Mucous membranes of the mouth are moist. Neck is supple. HEART EXAMINATION: Heart S1 S2 systolic ejection murmur. CHEST EXAMINATION: Lungs are clear with mild diminished air entry to the bases. No chest wall tenderness is noted on palpation or with deep breathing. ABDOMEN: Soft, nontender. Bowel sounds are heard. No organomegaly noted. EXTREMITIES: 2+ peripheral pulses with trace bilat pedal edema and no calf tenderness noted. NEUROLOGIC patient is awake, alert and oriented X3. Assessment #1 symptoms of shortness of breath with associated chest pressure. Mild element of congestive cardiac failure, we will start a low-dose of IV Lasix. Possible acute coronary syndrome. #2 hypertension #3 diabetes #4 hyperlipidemia #5 coronary artery disease with prior bypass surgery, most recent cardiac catheterization in 2018 patient underwent stenting of the circumflex and mid RCA, at that time the vein grafts were occluded, patent GIRON to the LAD #6 aortic valve replacement #7 prior history of smoking #8 COPD #9 pulmonary embolism was ruled out by VQ scan Plan Losartan and Lasix discontinued due to acute kidney injury Echocardiogram report is pending Monitor electrolytes and renal function Patient is tentatively scheduled for cardiac catheterization on Friday. Patient will be nothing by mouth at midnight and reassess renal function in the morning. Further recommendations to follow. Nurse practitioner note has been reviewed, I agree with the documented findings and plan of care. Patient was seen and examined. Objective - Vital Signs Vital signs: Vital Signs Temp 97.6 F 03/05/20 08:00 Pulse 72 03/05/20 08:00 Resp 18 03/05/20 08:00 BP 139/60 03/05/20 08:00 Pulse Ox 94 L 03/05/20 08:00 Intake & Output 03/04/20 03/05/20 03/05/20 18:59 06:59 18:59 Intake Total 200 Balance 200 Weight 107 kg Intake: Oral 200 Other: Voiding Method Toilet Toilet Toilet # Voids 1 - Labs CBC & Chem 7: 03/04/20 06:00 03/05/20 06:08 Labs: Abnormal Lab Results - Last 24 Hours (Table) 03/04/20 03/04/20 03/05/20 Range/Units 12:22 20:20 06:08 BUN 45 H (7-17) mg/dL Creatinine 1.47 H (0.52-1.04) mg/dL Glucose 166 H (74-99) mg/dL POC Glucose (mg/dL) 178 H 136 H (75-99) mg/dL 03/05/20 Range/Units 07:20 BUN (7-17) mg/dL Creatinine (0.52-1.04) mg/dL Glucose (74-99) mg/dL POC Glucose (mg/dL) 181 H (75-99) mg/dL
--- NOTE | 2020-03-05 12:58 | XR ---
EXAMINATION TYPE: XR chest 1V DATE OF EXAM: 03/05/2020 COMPARISON: Prior chest x-ray 03/02/2020 HISTORY: Congestive heart failure TECHNIQUE: Single frontal view of the chest is obtained. FINDINGS: There is interval improvement in aeration, interstitium has normalized. Patient is post me shelton sternotomy. Heart size is likely stable. No evident pneumothorax or pleural effusion. There are overlying cardiac leads. IMPRESSION: Improved aeration, volume status.
--- NOTE | 2020-03-05 13:43 | P.PN ---
Subjective 68-year-old pleasant female came in with plaints of shortness of breath and orthopnea proximal nocturnal distended is comparing of cough without any significant sputum production. Patient apparently was having chest pain earlier today which is pressure-like sensation in the midsternal area. Patient's EKG is consistent with a left bundle branch block which is not new. Patient is bit obese her BNP is around 900 and patient has gone artery disease with cardiac catheterization 2018 patient remains on dual antiplatelet therapy did not miss any of her medications patient had stenting of left circumflex and RCA in the past. Patient had a normal ejection fraction the past. Chest x-ray showing mild pleural effusion and some interstitial pulmonary edema consistent with CHF, no evidence of pneumonia patient does have leukocytosis patient's serum creatinine is 1.14 baseline is around that. First set of troponin is negative. Patient the shortness of breath the sudden onset started today. Chest pain is nonexertional headrest nonradiating mild to moderate resolved at this time not associated diaphoresis nausea lightheadedness 03/03/2020 Patient is seen and evaluated in follow-up and currently remains on 4 L of oxygen via nasal cannula. Patient is being seen and evaluated by cardiology and echo has been obtained but is currently pending. Patient had some elevated troponins and patient will potentially need cardiac catheterization. Patient had a chest x-ray showing some mild pleural effusions along with urinary edema and was initiated on Lasix although was discontinued. Current creatinine is slightly elevated at 1.21. Currently patient denies any chest pain, worsening shortness of breath, or palpitations. Patient is afebrile. No reports of nausea or vomiting and patient is tolerating diet. Patient also had a d-dimer which was elevated and will be obtaining a CTA to assess for pulmonary embolism. 03/04/2020 Valerie patient's creatinine is bit worse and spread which is started on Lasix because CT angios the chest is showing some pulmonary edema VQ scan showed low probably for PE and not sure why VQ scan was obtained as well. Since the patient's creatinine went up I'm holding on angiotensin receptor eder temp orarily. Patient is scheduled to undergo cardiac catheterization on Friday. 03/05/2020 Patient's creatinine can use to be at 1.4. I'll hold off on the Lasix will recheck electrolytes tomorrow patient will undergo cardiac catheterization tomorrow hopefully by then had a serum creatinine will improve although patient looks much better today Constitutional: Denied any fatigue denied any fever. Cardio vascular: denied any chest pain, palpitations Gastrointestinal denied any nausea vomiting Pulmonary: shortness of breath improved significantly Neurologic denied any new focal deficits All inpatient medications were reviewed and appropriate changes in these medications as dictated in the interval history and assessment and plan. Objective - Vital Signs Vital signs: Vital Signs Temp 97.6 F 03/05/20 08:00 Pulse 72 03/05/20 08:00 Resp 18 03/05/20 08:00 BP 139/60 03/05/20 08:00 Pulse Ox 94 L 03/05/20 08:00 Intake & Output 03/04/20 03/05/20 03/05/20 18:59 06:59 18:59 Intake Total 200 Balance 200 Weight 107 kg Intake: Oral 200 Other: Voiding Method Toilet Toilet Toilet # Voids 1 - Exam GENERAL: The patient is alert and oriented x3, not in any acute distress. Obese HEENT: Pupils are round and equally reacting to light. EOMI. No scleral icterus. No conjunctival pallor. Normocephalic, atraumatic. No pharyngeal erythema. No thyromegaly. CARDIOVASCULAR: S1 and S2 present. No murmurs, rubs, or gallops. PULMONARY: Chest is clear to auscultation, no wheezing or crackles. ABDOMEN: Soft, nontender, nondistended, normoactive bowel sounds. No palpable organomegaly. MUSCULOSKELETAL: No joint swelling or deformity. EXTREMITIES: No cyanosis, clubbing, or pedal edema. NEUROLOGICAL: Gross neurological examination did not reveal any focal deficits. SKIN: No rashes. - Labs CBC & Chem 7: 03/04/20 06:00 03/05/20 06:08 Labs: Abnormal Lab Results - Last 24 Hours (Table) 03/04/20 03/05/20 03/05/20 Range/Units 20:20 06:08 07:20 BUN 45 H (7-17) mg/dL Creatinine 1.47 H (0.52-1.04) mg/dL Glucose 166 H (74-99) mg/dL POC Glucose (mg/dL) 136 H 181 H (75-99) mg/dL 03/05/20 03/05/20 Range/Units 12:32 12:46 BUN (7-17) mg/dL Creatinine (0.52-1.04) mg/dL Glucose (74-99) mg/dL POC Glucose (mg/dL) 67 L 74 L (75-99) mg/dL Assessment and Plan Plan: -Shortness of breath: secondary to acute coronary syndrome, non-ST elevation myocardial infarction, mild CHF exacerbation presently euvolemic hold off on Lasix and losartan because of his renal failure patient will undergo cardiac catheterization tomorrow hopefully by then her serum creatinine will improve -Chest pain: possibly secondary to non-ST elevation myocardial infarction 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
[2020-03-05 17:32] LABS: Glucose,Whole Blood 138 mg/dL (75-99)
[2020-03-05 20:05] LABS: Glucose,Whole Blood 247 mg/dL (75-99)
[2020-03-05] MEDS: AMITRIPTYLINE HCL 50 MG TAB PO SCH (20:16)
[2020-03-05] MEDS: ATORVASTATIN 80 MG TAB PO SCH (20:16)
[2020-03-06 06:53] LABS: Glucose,Whole Blood 172 mg/dL (75-99)
[2020-03-06] MEDS: INSULIN DETEMIR (LEVEMIR) 100 UNIT/ML SYR SQ SCH (06:58)
[2020-03-06] MEDS: INSULIN ASPART (NovoLOG) 100 UNIT/ML VIAL SQ SCH ×7 (06:58→21:11)
[2020-03-06] MEDS: LEVOTHYROXINE 125 MCG TAB PO SCH (06:59)
[2020-03-06 08:03] LABS: African American GFR (CKD) 43 (>60 ml/min/1.73 sqM); Anion Gap 8 mmol/L; Blood Urea Nitrogen 41 mg/dL (7-17); Calcium 9.9 mg/dL (8.4-10.2); Carbon Dioxide 25 mmol/L (22-30); Chloride 104 mmol/L (98-107); Glucose 149 mg/dL (74-99); Non-African American GFR(CKD) 37 (>60 ml/min/1.73 sqM); Potassium 4.9 mmol/L (3.5-5.1); Sodium 137 mmol/L (137-145)
[2020-03-06 10:01] LABS: T4, Free (Free Thyroxine) 1.97 ng/dL (0.78-2.19)
[2020-03-06] MEDS: ALLOPURINOL 100 MG TAB PO SCH (10:23)
[2020-03-06] MEDS: ENOXAPARIN 40 MG/0.4 ML SYRINGE SQ SCH (10:23)
[2020-03-06] MEDS: CLOPIDOGREL 75 MG TAB PO SCH (10:23)
[2020-03-06] MEDS: ASPIRIN 81 MG PO SCH (10:23)
[2020-03-06] MEDS: POLYETHYLENE GLYCOL 3350 17 GM POWD.PACK PO SCH (10:24)
[2020-03-06] MEDS: METOPROLOL TARTRATE 50 MG TAB PO SCH ×2 (10:27→21:00)
[2020-03-06 11:55] LABS: Glucose,Whole Blood 177 mg/dL (75-99)
--- NOTE | 2020-03-06 14:19 | P.PN ---
Subjective Progress Note Date: 03/06/20 Principal diagnosis: 68-year-old pleasant female came in with plaints of shortness of breath and orthopnea proximal nocturnal distended is comparing of cough without any significant sputum production. Patient apparently was having chest pain earlier today which is pressure-like sensation in the midsternal area. Patient's EKG is consistent with a left bundle branch block which is not new. Patient is bit obese her BNP is around 900 and patient has gone artery disease with cardiac catheterization 2018 patient remains on dual antiplatelet therapy did not miss any of her medications patient had stenting of left circumflex and RCA in the past. Patient had a normal ejection fraction the past. Chest x-ray showing mild pleural effusion and some interstitial pulmonary edema consistent with CHF, no evidence of pneumonia patient does have leukocytosis patient's serum creatin ine is 1.14 baseline is around that. First set of troponin is negative. Patient the shortness of breath the sudden onset started today. Chest pain is nonexertional headrest nonradiating mild to moderate resolved at this time not associated diaphoresis nausea lightheadedness 03/03/2020 Patient is seen and evaluated in follow-up and currently remains on 4 L of oxygen via nasal cannula. Patient is being seen and evaluated by cardiology and echo has been obtained but is currently pending. Patient had some elevated troponins and patient will potentially need cardiac catheterization. Patient had a chest x-ray showing some mild pleural effusions along with urinary edema and was initiated on Lasix although was discontinued. Current creatinine is slightly elevated at 1.21. Currently patient denies any chest pain, worsening shortness of breath, or palpitations. Patient is afebrile. No reports of nausea or vomiting and patient is tolerating diet. Patient also had a d-dimer which was elevated and will be obtaining a CTA to assess for pulmonary embolism. 03/04/2020 Valerie patient's creatinine is bit worse and spread which is started on Lasix because CT angios the chest is showing some pulmonary edema VQ scan showed low probably for PE and not sure why VQ scan was obtained as well. Since the patient's creatinine went up I'm holding on angiotensin receptor eder temporarily. Patient is scheduled to undergo cardiac catheterization on Friday. 03/05/2020 Patient's creatinine can use to be at 1.4. I'll hold off on the Lasix will recheck electrolytes tomorrow patient will undergo cardiac catheterization tomorrow hopefully by then had a serum creatinine will improve although patient looks much better today Constitutional: Denied any fatigue denied any fever. Cardio vascular: denied any chest pain, palpitations Gastrointestinal denied any nausea vomiting Pulmonary: shortness of breath improved significantly Neurologic denied any new focal deficits 03/06/2020 Patient is seen and evaluated in follow-up awaiting to undergo cardiac catheterization tomorrow. Cardiology following closely. Creatinine is currently 1.42 with a BUN of 41. Lasix continues to be held and will repeat a.m. labs. Patient has been nothing by mouth for the procedure this morning and insulins were held. Diet to be resumed and then nothing by mouth at midnight for possible cardiac catheterization. Currently no reports of chest pain, shortness of breath, or palpitations. Patient is afebrile. No reports of nausea or vomiting. Chest x-ray yesterday shows improvement in area aeration a nd volume status with no evident pneumothorax or pleural effusion noted. Objective - Vital Signs Vital signs: Vital Signs Temp 98.0 F 03/06/20 08:00 Pulse 70 03/06/20 08:00 Resp 20 03/06/20 08:00 BP 141/61 03/06/20 08:00 Pulse Ox 94 L 03/06/20 08:00 Intake & Output 03/05/20 03/06/20 03/06/20 18:59 06:59 18:59 Intake Total 660 480 0 Output Total 800 Balance -140 480 0 Weight 110 kg Intake: Oral 660 480 0 Output: Urine 800 Other: Voiding Method Toilet Toilet # Voids 1 2 - Exam GENERAL: The patient is alert and oriented x3, not in any acute distress. Obese HEENT: Pupils are round and equally reacting to light. EOMI. No scleral icterus. No conjunctival pallor. Normocephalic, atraumatic. No pharyngeal erythema. No thyromegaly. CARDIOVASCULAR: S1 and S2 present. No murmurs, rubs, or gallops. PULMONARY: Diminished breath sounds bilaterally with no wheezing or crackles noted on exam. ABDOMEN: Soft, nontender, nondistended, normoactive bowel sounds. No palpable organomegaly. MUSCULOSKELETAL: No joint swelling or deformity. EXTREMITIES: No cyanosis, clubbing, or pedal edema. NEUROLOGICAL: Gross neurological examination did not reveal any focal deficits. SKIN: No rashes. - Labs CBC & Chem 7: 03/04/20 06:00 03/06/20 06:00 Labs: Abnormal Lab Results - Last 24 Hours (Table) 03/05/20 03/05/20 03/06/20 Range/Units 17:29 20:03 06:00 BUN 41 H (7-17) mg/dL Creatinine 1.42 H (0.52-1.04) mg/dL Glucose 149 H (74-99) mg/dL POC Glucose (mg/dL) 138 H 247 H (75-99) mg/dL TSH <0.015 L (0.465-4.680) mIU/L 03/06/20 03/06/20 Range/Units 06:51 11:37 BUN (7-17) mg/dL Creatinine (0.52-1.04) mg/dL Glucose (74-99) mg/dL POC Glucose (mg/dL) 172 H 177 H (75-99) mg/dL TSH (0.465-4.680) mIU/L Assessment and Plan Assessment: -Shortness of breath: secondary to acute coronary syndrome, non-ST elevation myocardial infarction, mild CHF exacerbation presently euvolemic. 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 Cardiology following. Patient awaiting to have cardiac catheterization potentially tomorrow. Patient's creatinine slightly elevated although less than yesterday at 1.42. Will continue with gentle IV hydration and repeat labs in the morning. Will continue to monitor labs and vital signs closely. Further recommendations to follow.
--- NOTE | 2020-03-06 14:24 | PN ---
PROGRESS NOTE Mrs. Treadwell is a lady, 70 years of age. She was seen by Dr. Will. She was advised cardiac cath today. Her renal function shows modest improvement from 1.47-1.42. Vitals are stable, no JVD. S1-S2 heard normally. Heart sounds are distantly, short systolic murmur noted. Lungs reveal diminished air entry. Abdomen and lower extremity exam unchanged. Plan is to continue current medications. Hydrate her cautiously and plan for a cardiac catheterization tomorrow. Vitals are stable, no JVD. Physical exam-rosenberg, there are no new significant findings. MMODL / IJN: [id number] /
[2020-03-06] MEDS: SODIUM CHLORIDE 0.9% 1,000 ML IV SCH (16:08)
[2020-03-06 17:13] LABS: Glucose,Whole Blood 194 mg/dL (75-99)
[2020-03-06 20:55] LABS: Glucose,Whole Blood 140 mg/dL (75-99)
[2020-03-06] MEDS: ATORVASTATIN 80 MG TAB PO SCH (21:00)
[2020-03-06] MEDS: AMITRIPTYLINE HCL 50 MG TAB PO SCH (21:00)
[2020-03-07] MEDS: SODIUM CHLORIDE 0.9% 1,000 ML IV SCH ×3 (02:44→21:04)
[2020-03-07] MEDS: LEVOTHYROXINE 125 MCG TAB PO SCH (06:28)
[2020-03-07 06:47] LABS: Glucose,Whole Blood 166 mg/dL (75-99)
[2020-03-07 06:59] LABS: Basophils # (A) 0.1 k/uL (0-0.2); Basophils % (A) 1 %; Eosinophils # (A) 0.3 k/uL (0-0.7); Eosinophils % (A) 3 %; HCT 31.8 % (34.0-46.0); HGB 10.3 gm/dL (11.4-16.0); Lymphocytes % (A) 19 %; MCH 30.3 pg (25.0-35.0); MCHC 32.5 g/dL (31.0-37.0); MCV 93.3 fL (80.0-100.0); Mean Platelet Volume 7.4; Monocytes # (A) 0.7 k/uL (0-1.0); Monocytes % (A) 7 %; Neutrophils # (A) 6.9 k/uL (1.3-7.7); Neutrophils % (A) 68 %; Platelet Count 244 k/uL (150-450); RBC 3.42 m/uL (3.80-5.40); RDW 13.8 % (11.5-15.5); WBC 10.1 k/uL (3.8-10.6)
[2020-03-07] MEDS: INSULIN ASPART (NovoLOG) 100 UNIT/ML VIAL SQ SCH ×7 (07:55→21:03)
[2020-03-07] MEDS: METOPROLOL TARTRATE 50 MG TAB PO SCH ×2 (08:13→21:03)
[2020-03-07] MEDS: ALLOPURINOL 100 MG TAB PO SCH (08:13)
[2020-03-07] MEDS: CLOPIDOGREL 75 MG TAB PO SCH (08:13)
[2020-03-07] MEDS: POLYETHYLENE GLYCOL 3350 17 GM POWD.PACK PO SCH (08:14)
[2020-03-07] MEDS: ASPIRIN 81 MG PO SCH (08:14)
[2020-03-07] MEDS: ENOXAPARIN 40 MG/0.4 ML SYRINGE SQ SCH (08:14)
[2020-03-07 08:56] LABS: Calcium 10.2 mg/dL (8.4-10.2); Potassium 4.7 mmol/L (3.5-5.1)
--- NOTE | 2020-03-07 10:15 | CDI ---
Documentation Clarification Form Date: 03/07/2020 CDS: Otilia Sprague, CCS, CCDS Admit Date: 03/02/2020 Patient Name: Rebeca Treadwell Discharge Date: ATTENTION: The Clinical Documentation Specialists (CDI) and [facility] Coding Staff appreciate your assistance in clarifying documentation. Please respond to the clarification below the line at the bottom and electronically sign. The CDI & [facility] Coding staff will review the response and follow-up if needed. Please note: Queries are made part of the Legal Health Record. If you have any questions, please contact the author of this message via ITS. Dear Dr. Vianney Schilling: Per the 03/02 ED note: New onset heart failure with hypoxia. Per the 03/02 History & Physical: Chest x-ray showing mild pleural effusion and some interstitial pulmonary edema consistent with CHF. Shortness of breath: Etiology is not clear that there is a component of CHF, I'll obtain an echocardiogram, patient will be started on Lasix, other concern is angina acute coronary syndrome. 03/03 Cardiology Consult: Consulted for congestive heart failure. History/Risk Factors: CAD with previous stents & Aortic Valve Replacement, Hypertension, Hyperlipidemia, DM II, CKD II, Hypothyroid & CVA, Former smoker. Clinical Indicators: Presented to the ED on 03/02 with acute onset of chest pressure & SOB. VS: P 73, R 20-22 (sob), BP 149/80, PO 98 15% [id number] LAB: D Dimer 1.59, BUN 30, Cr 1.14, Glucose 303, BNP 984. Echocardiogram Results (09/22/2017): EF 50-55% systolic low normal, Mod MR, Mild TR, No pulmonary hypertension. Chest X Ray: CHF with small bilateral pleural effusions. Treatment: IV Lasix 40 mg q8, Insulin sl sc. ECHO pending. In your professional opinion, can you please clarify the acuity and type of CHF if known? Systolic Heart Failure: o Acute o Chronic o Acute on Chronic Diastolic Heart Failure: o Acute o Chronic o Acute on Chronic Systolic & Diastolic Heart Failure: o Acute o Chronic o Acute on Chronic Heart Failure Unable to Determine Other, please specify Acute diastolic congestive heart failure (Last Revision: November 2017) MTDD
[2020-03-07 12:16] LABS: Glucose,Whole Blood 191 mg/dL (75-99)
--- NOTE | 2020-03-07 12:26 | PN ---
PROGRESS NOTE Mrs Treadwell has a history of aortic valve bioprosthesis. She also has a low TSH and elevated free T4. I am recommending that we decrease the Synthroid from 250-175 mcg. Vitals are stable, JVD 1 cm, ejection systolic murmur is audible. Second heart sound is preserved. Lungs are clear. Abdomen and lower extremity exam unchanged. Plan is to proceed with coronary angiography today and possible PCI. Dr. Schilling will perform procedure. Patient is aware of the risks, benefits, options and rationale. MMODL / IJN: [id number] /
[2020-03-07] MEDS ORDERED: LIDOCAINE 1% INJ 10MG/ML (20 ML MDV) ONE (12:50)
[2020-03-07] MEDS ORDERED: fentaNYL (PF) 50 MCG/ML 2 ML AMP ONE (13:05)
[2020-03-07] MEDS: MIDAZOLAM 2 MG/2 ML VIAL IV ONE ×2 (13:16→13:59)
[2020-03-07] MEDS ORDERED: LIDOCAINE 1% INJ 10MG/ML (20 ML MDV) SQ ONE (13:16)
[2020-03-07] MEDS ORDERED: fentaNYL (PF) 50 MCG/ML 2 ML AMP IV ONE (13:16)
[2020-03-07] MEDS ORDERED: IV FLUID CONTINUATION 600 ML IV ONE (13:17)
[2020-03-07] MEDS ORDERED: BIVALIRUDIN BOLUS 250 MG/50 ML IV ONE (13:59)
[2020-03-07] MEDS ORDERED: BIVALIRUDIN 250 MG in SODIUM CHLORIDE 0.9% 50 ML IV ONE (14:00)
[2020-03-07] MEDS: NITROGLYCERIN 1000MCG/10ML SYRINGE INTRACORON ONE ×2 (14:01→14:06)
[2020-03-07] MEDS ORDERED: IOPAMIDOL-370 100ML BTL INJ ONE ×2 (14:02→14:07)
[2020-03-07] MEDS ORDERED: CLOPIDOGREL 75 MG TAB ONE (14:09)
[2020-03-07] MEDS ORDERED: CLOPIDOGREL 75 MG TAB PO ONE (14:10)
[2020-03-07] MEDS ORDERED: MAG HYDROX/AL HYDROX/SIMETH 30 ML CUP PO PRN (14:31)
[2020-03-07] MEDS ORDERED: RX INFO: IV CONTRAST WAS GIVEN 1 EACH MISC MISCELLANE PRN (14:31)
[2020-03-07] MEDS ORDERED: ZOLPIDEM 5 MG TAB PO PRN (14:31)
[2020-03-07] MEDS ORDERED: ATROPINE SULFATE 0.1 MG/ML 10ML SYRINGE IV PRN (14:31)
--- NOTE | 2020-03-07 14:38 | PTCA ---
PERCUTANEOUSTRANS CORORONARY ANGIOGRAPHY DATE OF SERVICE: 03/07/2020 PERFORMING PHYSICIAN: Javier Weathers MD. PROCEDURE PERFORMED: Successful stenting of the mid left circumflex using 2.5 x 15 mm Xience KEN with an excellent angiographic results and reduction of stenosis from 80% to 0%. INDICATION: This is a 70-year-old female patient with coronary artery disease and prior coronary revascularization, who was admitted to the hospital with chest discomfort and ruled in for acute kso-JB-gbywifadi myocardial infarction. She underwent a heart catheterization by Dr. Schilling and was found to have severe disease involving the right coronary artery and left circumflex. The decision was made toward fixing the left circumflex at this point because it seems to be more critical than the right coronary artery and because of her maximum threshold of contrast. APPROACH: Right common femoral artery. COMPLICATION: None. LEVEL OF SEDATION: Moderate with sedation length of 20 minutes. PROCEDURE DESCRIPTION: Please refer to diagnostic heart catheterization that was performed by Dr. Schilling. Anticoagulation was initiated using Angiomax. Subsequently, I did engage the left main using an XP3.5 guide. I did wire the left circumflex using a run-through wire. PTCA ballooning was performed using 2.5 x 12 mm AngioSculpt balloon which was inflated under 14 atmospheres for 20 seconds x2. After that, I did stenting of the left circumflex using 2.5 x 15 mm Xience KEN where the stent was positioned under fluoroscopy guidance and deployed under 12 atmospheres for 20 seconds. The following angiogram showed excellent angiographic results and the procedure was completed without any complication. POSTPROCEDURE MANAGEMENT: 1. Dual anti-platelet therapy. 2. Risk factor modifications. 3. Follow up with the patient. MMODL / IJN: [id number] /
[2020-03-07] MEDS ORDERED: SODIUM CHLORIDE 0.9% 1,000 ML IV SCH (14:45)
[2020-03-07 16:54] LABS: Glucose,Whole Blood 147 mg/dL (75-99)
[2020-03-07] MEDS: INSULIN DETEMIR (LEVEMIR) 100 UNIT/ML SYR SQ SCH (17:26)
[2020-03-07 20:47] LABS: Glucose,Whole Blood 144 mg/dL (75-99)
[2020-03-07] MEDS: AMITRIPTYLINE HCL 50 MG TAB PO SCH (21:03)
[2020-03-07] MEDS: ATORVASTATIN 80 MG TAB PO SCH (21:03)
[2020-03-08] MEDS: SODIUM CHLORIDE 0.9% 1,000 ML IV SCH (05:30)
[2020-03-08] MEDS ORDERED: LEVOTHYROXINE 88 MCG TAB PO SCH (06:30)
[2020-03-08] MEDS ORDERED: LEVOTHYROXINE 75 MCG TAB PO SCH (06:30)
[2020-03-08 06:43] LABS: Basophils % (A) 0 %; Eosinophils # (A) 0.3 k/uL (0-0.7); Eosinophils % (A) 3 %; HCT 30.6 % (34.0-46.0); HGB 10.5 gm/dL (11.4-16.0); Lymphocytes # (A) 1.9 k/uL (1.0-4.8); Lymphocytes % (A) 20 %; MCH 31.8 pg (25.0-35.0); MCHC 34.2 g/dL (31.0-37.0); MCV 93.1 fL (80.0-100.0); Mean Platelet Volume 7.1; Monocytes # (A) 0.6 k/uL (0-1.0); Monocytes % (A) 7 %; Neutrophils # (A) 6.6 k/uL (1.3-7.7); Neutrophils % (A) 69 %; Platelet Count 237 k/uL (150-450); RBC 3.29 m/uL (3.80-5.40); RDW 13.6 % (11.5-15.5); WBC 9.6 k/uL (3.8-10.6)
[2020-03-08 06:58] LABS: Potassium 4.8 mmol/L (3.5-5.1)
[2020-03-08 07:38] LABS: Glucose,Whole Blood 162 mg/dL (75-99)
[2020-03-08 07:40] VITALS: PULSE 73; RESP 16; TEMP 98
[2020-03-08] MEDS: INSULIN ASPART (NovoLOG) 100 UNIT/ML VIAL SQ SCH ×4 (07:42→12:25)
[2020-03-08 07:44] VITALS: BP 119/56
[2020-03-08] MEDS: ASPIRIN 81 MG PO SCH (07:51)
[2020-03-08] MEDS: METOPROLOL TARTRATE 50 MG TAB PO SCH (07:51)
[2020-03-08] MEDS: ALLOPURINOL 100 MG TAB PO SCH (07:51)
[2020-03-08] MEDS: CLOPIDOGREL 75 MG TAB PO SCH (07:51)
[2020-03-08] MEDS: ENOXAPARIN 40 MG/0.4 ML SYRINGE SQ SCH (07:51)
[2020-03-08] MEDS: POLYETHYLENE GLYCOL 3350 17 GM POWD.PACK PO SCH (07:51)
--- NOTE | 2020-03-08 08:29 | ECHOF ---
Referral Reason:chf MEASUREMENTS -------- HEIGHT: 165.1 cm WEIGHT: 106.6 kg BP: RVIDd: 3.7 cm (< 3.3) IVSd: 1.3 cm (0.6 - 1.1) LVIDd: 4.8 cm (3.9 - 5.3) LVPWd: 1.5 cm (0.6 - 1.1) IVSs: 1.5 cm LVIDs: 3.9 cm LVPWs: 1.5 cm LA Diam: 5.2 cm (2.7 - 3.8) LAESV Index (A-L): 40.95 ml/m Ao Diam: 2.7 cm (2.0 - 3.7) AV Cusp: 1.7 cm (1.5 - 2.6) MV EXCURSION: 14.230 mm (> 18.000) MV EF SLOPE: 37 mm/s (70 - 150) EPSS: 0.7 cm MV E Montrell: 1.15 m/s MV DecT: 189 ms MV A Montrell: 1.23 m/s MV E/A Ratio: 0.94 AV maxP.26 mmHg AV meanP.66 mmHg RAP: 5.00 mmHg RVSP: 35.77 mmHg FINDINGS -------- Sinus rhythm. This was a technically adequate study. The left ventricular size is normal. There is moderate concentric left ventricular hypertrophy. O verall left ventricular systolic function is normal with, an EF between 55 - 60 %. The diastolic fi lling pattern indicates impaired relaxation 33.37. The right ventricle is normal in size. LA is severely dilated >40 ml/m2 The right atrial size is normal. Peak/mean gradient across the Aortic Valve is 34.26mmHg / 17.66mmHg. There is mild stenosis of the bioprosthetic aortic valve. Moderate mitral annular calcification present. Moderate mitral regurgitation is present. The pea k and mean MV gradients are 13.94mmHg 4.44mmHg as measured by doppler. Mild tricuspid regurgitation present. There is mild pulmonary hypertension. The right ventricular systolic pressure, as measured by Doppler, is 35.77mmHg. Trace/mild (physiologic) pulmonic regurgitation. The aortic root size is normal. There is no pericardial effusion. CONCLUSIONS -------- 1. There is moderate concentric left ventricular hypertrophy. 2. Overall left ventricular systolic function is normal with, an EF between 55 - 60 %. 3. The diastolic filling pattern indicates impaired relaxation 33.37.. 4. LA is severely dilated >40 ml/m2 5. Peak/mean gradient across the Aortic Valve is 34.26mmHg / 17.66mmHg. 6. There is mild stenosis of the bioprosthetic aortic valve. 7. Moderate mitral annular calcification present. 8. Moderate mitral regurgitation is present. 9. Mild tricuspid regurgitation present. 10. There is mild pulmonary hypertension. 11. Trace/mild (physiologic) pulmonic regurgitation. 12. There is no pericardial effusion. BONDING AGENT: Ayah Gracia RDCS
--- NOTE | 2020-03-08 08:30 | P.CARDCATH ---
Date of Procedure: 03/07/20 Preoperative Diagnosis: Non-STEMI with congestive heart failure with history of previous stent placement Postoperative Diagnosis: Critical lesion involving the within the circumflex stent and moderate stenosis of the stent within the RCA Procedure(s) Performed: Left heart catheterization without left ventriculography Description of Procedure: HISTORY: This is a 70-year-old female with history of ischemic heart disease with previous bypass surgery. Last catheterization showed that patient had only GIRON graft to LAD with occlusion of the other vein grafts. Patient had stent placement of the circumflex and also right coronary artery. Patient now presented with sudden onset of shortness of breath consistent with CHF and also abnormal troponins. She is advised to have cardiac catheterization for definite diagnosis CONSENT:I have discussed the risks, benefits and alternative therapies for the above-mentioned procedure and for both sedation/analgesia as well as necessary blood product administration, if indicated, as they pertain to this patient. The patient has indicated understanding and acceptance of the risks and procedures discussed. PROCEDURE: Patient was brought to the lab in a fasting state. Patient was given some IV sedation. The right groin is infiltrated with lidocaine and right femoral artery was entered using Seldinger technique. A 6-Chinese catheter was left in place and selective coronary arteriography was performed. Patient tolerated the procedure well. No immediate complications were noted and patient went on to have stent placement of the circumflex Conscious Sedation: Versed 1mg Fentanyl 25 g Duration 16minutes HEMODYNAMICS: Aortic pressure is about 140/70. Left ventricular end-diastolic pressure was not measured SELECTIVE CORONARY ARTERIOGRAPHY: LEFT MAIN: Normal length and free of any significant disease THE LEFT ANTERIOR DESCENDING CORONARY ARTERY:. Moderate caliber vessel with diffuse disease without any critical lesions in the proximal portion. There is a GIRON attached to the distal LAD THE LEFT CIRCUMFLEX AND IS CORONARY ARTERY:, Moderate caliber vessel with about 90% in-stent stenosis in the proximal portion. Diffuse disease in the distal portions THE RIGHT CORONARY ARTERY: Moderate caliber vessel with moderate stenosis of the stented area in the proximal to midportion. Diffuse disease distal The GIRON to LAD: This is patent at the distal anastomosis and also throat its length LEFT VENTRICULOGRAPHY: Not performed FINAL IMPRESSION:. Critical lesion involving the stented segment in the circumflex. Moderate disease involving the stented segment in the RCA. Patent GIRON to the LAD. Plan: Stent placement of the circumflex followed by stent placement of the RCA PROGNOSIS: Guarded
[2020-03-08] MEDS ORDERED: SODIUM CHLORIDE 0.9% 1,000 ML IV SCH (09:45)
[2020-03-08 11:46] LABS: Glucose,Whole Blood 133 mg/dL (75-99)
[2020-03-08] MEDS: INSULIN DETEMIR (LEVEMIR) 100 UNIT/ML SYR SQ SCH (12:23)
--- NOTE | 2020-03-08 14:00 | PN ---
PROGRESS NOTE Mrs. Treadwell had stenting of circumflex. She also has an RCA lesion. I reviewed the images. A long talk to Dr. Weathers, lesion is moderate, not critical. We will pursue medical therapy. Creatinine has improved to 1.3. Vitals are stable. No JVD, S1, S2 heard normally, ejection systolic murmur audible. Lungs revealed decent air entry. Abdomen is soft. Lower extremities reveal diminished pulses. Right groin is clean and dry. The patient can be discharged on dual antiplatelet therapy and follow with Dr. Schilling. No intervention necessary from a coronary disease standpoint. A stress test will be performed as an outpatient. Discussed my thoughts in detail with the patient. I expect that she will be discharged today. Creatinine is good at 1.23. MMODL / IJN: [id number] /
--- NOTE | 2020-03-08 15:01 | P.DS ---
Providers Date of admission: 03/02/20 05:39 Attending physician: Buddy Rogers Consults: 03/02/20 05:54 Consult Physician Routine Consulting Provider: Mehreen Fang Consult Reason/Comments: new CHF Do you want consulting provider notified?: Yes, Notify in am 03/07/20 14:31 Consult Physician Routine Consulting Provider: Mehreen Fang Consult Reason/Comments: Post Interventional patient Do you want consulting provider notified?: Already Contacted Primary care physician: [facility] Course: 68-year-old pleasant female came in with plaints of shortness of breath and or thopnea proximal nocturnal distended is comparing of cough without any significant sputum production. Patient apparently was having chest pain earlier today which is pressure-like sensation in the midsternal area. Patient's EKG is consistent with a left bundle branch block which is not new. Patient is bit obese her BNP is around 900 and patient has gone artery disease with cardiac catheterization 2018 patient remains on dual antiplatelet therapy did not miss any of her medications patient had stenting of left circumflex and RCA in the past. Patient had a normal ejection fraction the past. Chest x-ray showing mild pleural effusion and some interstitial pulmonary edema consistent with CHF, no evidence of pneumonia patient does have leukocytosis patient's serum creatinine is 1.14 baseline is around that. First set of troponin is negative. Patient the shortness of breath the sudden onset started today. Chest pain is nonexertional headrest nonradiating mild to moderate resolved at this time not associated diaphoresis nausea lightheadedness 03/03/2020 Patient is seen and evaluated in follow-up and currently remains on 4 L of oxygen via nasal cannula. Patient is being seen and evaluated by cardiology and echo has been obtained but is currently pending. Patient had some elevated troponins and patient will potentially need cardiac catheterization. Patient had a chest x-ray showing some mild pleural effusions along with urinary edema and was initiated on Lasix although was discontinued. Current creatinine is slightly elevated at 1.21. Currently patient denies any chest pain, worsening shortness of breath, or palpitations. Patient is afebrile. No reports of nausea or vomiting and patient is tolerating diet. Patient also had a d-dimer which was elevated and will be obtaining a CTA to assess for pulmonary embolism. 03/04/2020 Valerie patient's creatinine is bit worse and spread which is started on Lasix because CT angios the chest is showing some pulmonary edema VQ scan showed low probably for PE and not sure why VQ scan was obtained as well. Since the patient's creatinine went up I'm holding on angiotensin receptor eder temporarily. Patient is scheduled to undergo cardiac catheterization on Friday. 03/05/2020 Patient's creatinine can use to be at 1.4. I'll hold off on the Lasix will recheck electrolytes tomorrow patient will undergo cardiac catheterization tomorrow hopefully by then had a serum creatinine will improve although patient looks much better today Constitutional: Denied any fatigue denied any fever. Cardio vascular: denied any chest pain, palpitations Gastrointestinal denied any nausea vomiting Pulmonary: shortness of breath improved significantly Neurologic denied any new focal deficits 03/06/2020 Patient is seen and evaluated in follow-up awaiting to undergo cardiac catheterization tomorrow. Cardiology following closely. Creatinine is currently 1.42 with a BUN of 41. Lasix continues to be held and will repeat a.m. labs. Patient has been nothing by mouth for the procedure this morning and insulins were held. Diet to be resumed and then nothing by mouth at midnight for possible cardiac catheterization. Currently no reports of chest pain, shortness of breath, or palpitations. Patient is afebrile. No reports of nausea or vomiting. Chest x-ray yesterday shows improvement in area aeration and volume status with no evident pneumothorax or pleural effusion noted. 03/08/2020 Patient underwent cardiac catheterization and stenting to circumflex. Patient is feeling better today patient is presently euvolemic today patient was treated for diastolic dysfunction heart failure but presently euvolemic and patient has normal ejection fraction patient is not requiring any Lasix because of the Lasix patient went into renal failure, because of the the renal failure and acute renal failure I'm not using YOLANDA inhibitor or angiotensin receptor eder as well. Patient will be discharged today with aspirin and Plavix and beta eder. Along with statin. PHYSICAL EXAMINATION: GENERAL: The patient is alert and oriented x3, not in any acute distress. Well developed, well nourished. HEENT: Pupils are round and equally reacting to light. EOMI. No scleral icterus. No conjunctival pallor. Normocephalic, atraumatic. No pharyngeal erythema. No thyromegaly. CARDIOVASCULAR: S1 and S2 present. No murmurs, rubs, or gallops. PULMONARY: Chest is clear to auscultation, no wheezing or crackles. ABDOMEN: Soft, nontender, nondistended, normoactive bowel sounds. No palpable organomegaly. MUSCULOSKELETAL: No joint swelling or deformity. EXTREMITIES: No cyanosis, clubbing, or pedal edema. NEUROLOGICAL: Gross neurological examination did not reveal any focal deficits. SKIN: No rashes. Assessment and Plan Assessment: -e, non-ST elevation myocardial infarction, mild CHF exacerbation presently euvolemic. 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 -Leukocytosis without any evidence of infection reactive in nature -Type 2 diabetes mellitus controlled blood sugars -Obesity -Coronary artery disease with previous stents, patient is currently on aspirin and Plavix -Cerebrovascular accident -Hypertension -Peripheral vascular disease -Hypothyroidism Patient Condition at Discharge: Serious Plan - Discharge Summary Discharge Rx Participant: No New Discharge Prescriptions: Continue Allopurinol [Zyloprim] 100 mg PO DAILY Aspirin EC [Ecotrin Low Dose] 81 mg PO DAILY Atorvastatin [Lipitor] 80 mg PO HS #30 tab Metoprolol Tartrate [Lopressor] 50 mg PO BID #60 tab Nitroglycerin Sl Tabs [Nitrostat] 0.4 mg SUBLINGUAL Q5M PRN #25 tab PRN Reason: Chest Pain Acetaminophen Tab [Tylenol] 500 mg PO BID PRN PRN Reason: Pain Or Fever > 100.5 Amitriptyline HCl [Elavil] 50 mg PO HS Levothyroxine Sodium [Synthroid] 250 mcg PO DAILY Insulin Glargine,Hum.rec.anlog [Lantus Solostar] 60 unit SQ DAILY Insulin Aspart [Insulin Aspart Flexpen] 20 unit SQ TID-W/MEALS Polyethylene Glycol 3350 [Miralax] 17 gm PO DAILY Clopidogrel [Plavix] 75 mg PO DAILY #30 tab Discontinued amLODIPine [Norvasc] 10 mg PO DAILY Losartan [Cozaar] 50 mg PO DAILY Discharge Medication List Allopurinol [Zyloprim] 100 mg PO DAILY 08/03/15 [History] Aspirin EC [Ecotrin Low Dose] 81 mg PO DAILY 09/21/17 [History] Atorvastatin [Lipitor] 80 mg PO HS #30 tab 09/26/17 [Rx] Metoprolol Tartrate [Lopressor] 50 mg PO BID #60 tab 09/26/17 [Rx] Nitroglycerin Sl Tabs [Nitrostat] 0.4 mg SUBLINGUAL Q5M PRN #25 tab 09/26/17 [Rx] Acetaminophen Tab [Tylenol] 500 mg PO BID PRN 03/02/20 [History] Amitriptyline HCl [Elavil] 50 mg PO HS 03/02/20 [History] Insulin Aspart [Insulin Aspart Flexpen] 20 unit SQ TID-W/MEALS 03/02/20 [History] Insulin Glargine,Hum.rec.anlog [Lantus Solostar] 60 unit SQ DAILY 03/02/20 [History] Levothyroxine Sodium [Synthroid] 250 mcg PO DAILY 03/02/20 [History] Polyethylene Glycol 3350 [Miralax] 17 gm PO DAILY 03/02/20 [History] Clopidogrel [Plavix] 75 mg PO DAILY #30 tab 03/08/20 [Rx] Follow up Appointment(s)/Referral(s): Vianney Schilling MD [STAFF PHYSICIAN] - 03/17/20 2:30 pm [facility] [Primary Care Provider] - 03/13/20 3:30 pm (Please have patient call office once discharged home today. ) Patient Instructions/Handouts: Chest Pain (DC) Discharge Disposition: HOME SELF-CARE
[2020-03-08 15:11] VITALS: BMI 38.0
== END 2020-03-08 14:35 | disposition home or self-care (01) | DRG 246 ==
LOC: EC 03:16 → 3SCARD 05:39
PROVIDERS: ADMIT Hospitalist; ATTEND Hospitalist
PROC: 027034Z Dilation of Coronary Artery, One Artery with Drug-eluting Intraluminal Device, Percutaneous Approach (ICD-10-PCS; principal; 2020-03-07 12:00)
PROC: B2111ZZ Fluoroscopy of Multiple Coronary Arteries using Low Osmolar Contrast (ICD-10-PCS; 2020-03-08)
PROC: 4A023N7 Measurement of Cardiac Sampling and Pressure, Left Heart, Percutaneous Approach (ICD-10-PCS; 2020-03-08)
DX: I21.4 Non-ST elevation (NSTEMI) myocardial infarction (principal); I50.33 Acute on chronic diastolic (congestive) heart failure; N17.9 Acute kidney failure, unspecified; I13.0 Hypertensive heart and chronic kidney disease with heart failure and stage 1 through stage 4 chronic kidney disease, or unspecified chronic kidney disease; I25.10 Atherosclerotic heart disease of native coronary artery without angina pectoris; E78.5 Hyperlipidemia, unspecified; E66.9 Obesity, unspecified; E03.9 Hypothyroidism, unspecified; J44.9 Chronic obstructive pulmonary disease, unspecified; M19.90 Unspecified osteoarthritis, unspecified site; N18.3 Chronic kidney disease, stage 3 (moderate); E11.22 Type 2 diabetes mellitus with diabetic chronic kidney disease; E11.51 Type 2 diabetes mellitus with diabetic peripheral angiopathy without gangrene; E11.65 Type 2 diabetes mellitus with hyperglycemia; M10.9 Gout, unspecified; I44.7 Left bundle-branch block, unspecified; Z96.653 Presence of artificial knee joint, bilateral; Z11.59 Encounter for screening for other viral diseases; Z86.73 Personal history of transient ischemic attack (TIA), and cerebral infarction without residual deficits; Z95.2 Presence of prosthetic heart valve; Z95.5 Presence of coronary angioplasty implant and graft; Z95.1 Presence of aortocoronary bypass graft; Z79.82 Long term (current) use of aspirin; Z79.890 Hormone replacement therapy; Z87.440 Personal history of urinary (tract) infections; Z87.891 Personal history of nicotine dependence; Z68.38 Body mass index [BMI] 38.0-38.9, adult; Z79.4 Long term (current) use of insulin; Z79.02 Long term (current) use of antithrombotics/antiplatelets; Z79.899 Other long term (current) drug therapy; Z79.84 Long term (current) use of oral hypoglycemic drugs; Z88.6 Allergy status to analgesic agent; Z88.2 Allergy status to sulfonamides; I25.2 Old myocardial infarction; Z98.890 Other specified postprocedural states; Z82.49 Family history of ischemic heart disease and other diseases of the circulatory system; Z83.3 Family history of diabetes mellitus
CPT/HCPCS: 36415; 71045; 71046; 71275; 78582; 80048; 80053; 83605; 83880; 84439; 84443; 84484; 85025; 85027; 85379; 85610; 85730; 93005; 93306; 93458; 96374; 99285

== ENCOUNTER → 2020-04-28 | Outpatient (CLI) | payer OTHER, MEDICARE ==
[2020-04-28 09:10] LABS: Magnesium 1.7 mg/dL (1.6-2.3)
[2020-04-28 09:11] LABS: HCT 37.3 % (34.0-46.0); HGB 12.2 gm/dL (11.4-16.0); MCH 29.9 pg (25.0-35.0); MCHC 32.7 g/dL (31.0-37.0); MCV 91.5 fL (80.0-100.0); Platelet Count 268 k/uL (150-450); RBC 4.08 m/uL (3.80-5.40); RDW 13.8 % (11.5-15.5); WBC 12.3 k/uL (3.8-10.6)
== END | disposition home or self-care (01) ==
LOC: LABPAT 08:22
PROVIDERS: ATTEND Internal Medicine Cardiovascular Disease
DX: Z01.818 Encounter for other preprocedural examination (principal)
CPT/HCPCS: 82565; 83735; 84520; 85027

== ENCOUNTER 2020-05-02 09:19 | Day surgery (SDC) | payer MEDICARE, OTHER ==
[2020-04-28 08:51] VITALS: BMI 37.0
[~2020-05-02 09:19] MED LIST: ALPRAZolam 0.25 MG TAB PO PRN; ALPRAZolam 0.5 MG TAB PO PRN; ASPIRIN 325 MG TAB PO STA; ATORVASTATIN 80 MG TAB PO STA; NITROGLYCERIN SL TABS 0.4 MG TAB SUBLINGUAL PRN; SODIUM CHLORIDE 0.9% 1,000 ML in EMPTY BAG 1 BAG IV ONE
[2020-05-02 10:13] LABS: Glucose,Whole Blood 92 mg/dL (75-99)
[2020-05-02 10:46] LABS: Basophils # (A) 0.1 k/uL (0-0.2); Basophils % (A) 1 %; Eosinophils # (A) 0.3 k/uL (0-0.7); Eosinophils % (A) 3 %; HCT 33.2 % (34.0-46.0); HGB 11.1 gm/dL (11.4-16.0); Lymphocytes # (A) 2.5 k/uL (1.0-4.8); Lymphocytes % (A) 22 %; MCH 30.4 pg (25.0-35.0); MCHC 33.5 g/dL (31.0-37.0); MCV 90.6 fL (80.0-100.0); Mean Platelet Volume 7.3; Monocytes # (A) 0.7 k/uL (0-1.0); Monocytes % (A) 6 %; Neutrophils # (A) 7.7 k/uL (1.3-7.7); Neutrophils % (A) 67 %; Platelet Count 234 k/uL (150-450); RBC 3.66 m/uL (3.80-5.40); WBC 11.5 k/uL (3.8-10.6)
[2020-05-02] MEDS ORDERED: fentaNYL (PF) 50 MCG/ML 2 ML AMP ONE (10:50)
[2020-05-02] MEDS ORDERED: LIDOCAINE 1% INJ 10MG/ML (20 ML MDV) ONE (10:50)
[2020-05-02 10:51] LABS: Calcium 10.1 mg/dL (8.4-10.2); Potassium 4.7 mmol/L (3.5-5.1)
[2020-05-02] MEDS ORDERED: fentaNYL (PF) 50 MCG/ML 2 ML AMP IVP ONE (11:07)
[2020-05-02] MEDS ORDERED: MIDAZOLAM 2 MG/2 ML VIAL IVP ONE (11:07)
[2020-05-02] MEDS ORDERED: LIDOCAINE 1% INJ 10MG/ML (20 ML MDV) SQ ONE (11:13)
--- NOTE | 2020-05-02 11:43 | P.CARDCATH ---
Date of Procedure: 05/02/20 Preoperative Diagnosis: Coronary artery disease and positive stress test Postoperative Diagnosis: The same Procedure(s) Performed: Left heart catheterization without left ventriculography Description of Procedure: HISTORY: This is a 70-year-old female with history of previous bypass surgery who had a cardiac catheterization by Dr. Villasenor in February of this year. The patient was found to have patent GIRON to the LAD and diffuse disease involving the left coronary system and also right coronary system. Patient had stent placement of the circumflex. There was a lesion in the RCA which was felt to be borderline. Patient had a stress test which showed ischemia in the inferior wall and also mid anterior wall. Patient is advised to have a cardiac catheterization with the intention of stenting of the RCA. CONSENT:I have discussed the risks, benefits and alternative therapies for the above-mentioned procedure and for both sedation/analgesia as well as necessary blood product administration, if indicated, as they pertain to this patient. The patient has indicated understanding and acceptance of the risks and procedures discussed. PROCEDURE: Patient was brought to the lab in a fasting state. Patient was given some IV sedation. The right groin is infiltrated with lidocaine and right femoral artery was entered using Seldinger technique. A 6-Vincentian catheter was left in place and selective coronary arteriography was performed. Patient tolerated the procedure well. Patient is waiting to have stent placement of the RCA by Dr. Villasenor.. No immediate complications were noted . Conscious Sedation: Versed 1mg Fentanyl 25 g Duration 14minutes HEMODYNAMICS: The aortic pressure is 117/60. The end-diastolic pressure of the ventricle is not measured SELECTIVE CORONARY ARTERIOGRAPHY: LEFT MAIN: Normal length with mild diffuse disease THE LEFT ANTERIOR DESCENDING CORONARY ARTERY:. This is a fair caliber vessel with diffuse disease and a total occluded after giving a diagonal branches and septal branch. The diagonal branch has diffuse disease in the areas of about 60-70% stenosis but this is a small-caliber vessel THE LEFT CIRCUMFLEX AND IS CORONARY ARTERY:. This is a moderate caliber vessel with a patent stent in the proximal area. Distally the vessel is diffuse disease and small in caliber with areas of 60-70% stenosis involving long segments THE RIGHT CORONARY ARTERY:. This is a good caliber vessel with about 6 eccentric 70% stenosis proximal to the previous stented area. It gives rise to PDA and PLV branches. The PDA branch has diffuse disease and total occlusion in the midportion. The intermediate coronary artery : This is a small caliber vessel and diffusely diseased. The GIRON graft: This is studied in February and seemed patent but small in caliber LEFT VENTRICULOGRAPHY: Not performed FINAL IMPRESSION: Critical lesion involving the RCA prior to the previous stented area. Patent stent in the circumflex. Diffuse disease involving the left coronary system PLAN: stent placement of the RCA to be done by Dr. Villasenor PROGNOSIS: Guarded
[2020-05-02] MEDS ORDERED: CLOPIDOGREL 75 MG TAB ONE (12:01)
[2020-05-02] MEDS ORDERED: BIVALIRUDIN 250 MG in SODIUM CHLORIDE 0.9% 50 ML IV ONE (12:03)
[2020-05-02] MEDS ORDERED: BIVALIRUDIN BOLUS 250 MG/50 ML IV ONE (12:03)
[2020-05-02] MEDS ORDERED: CLOPIDOGREL 75 MG TAB PO ONE (12:05)
[2020-05-02] MEDS ORDERED: NITROGLYCERIN 1000MCG/10ML SYRINGE INTRAARTER ONE (12:06)
[2020-05-02] MEDS ORDERED: IOPAMIDOL-370 125ML BTL INJ ONE (12:17)
[2020-05-02] MEDS ORDERED: ACETAMINOPHEN TAB 500 MG TAB PO PRN (12:44)
[2020-05-02] MEDS ORDERED: NITROGLYCERIN SL TABS 0.4 MG TAB SUBLINGUAL PRN ×2 (12:44→12:45)
[2020-05-02] MEDS ORDERED: ZOLPIDEM 5 MG TAB PO PRN (12:45)
[2020-05-02] MEDS ORDERED: ATROPINE SULFATE 0.1 MG/ML 10ML SYRINGE IV PRN (12:45)
[2020-05-02] MEDS ORDERED: SODIUM CHLORIDE 0.9% 1,000 ML IV SCH (12:45)
[2020-05-02] MEDS ORDERED: MAG HYDROX/AL HYDROX/SIMETH 30 ML CUP PO PRN (12:45)
[2020-05-02] MEDS ORDERED: RX INFO: IV CONTRAST WAS GIVEN 1 EACH MISC MISCELLANE PRN (12:45)
--- NOTE | 2020-05-02 17:01 | PTCA ---
PERCUTANEOUSTRANS CORORONARY ANGIOGRAPHY DATE OF SERVICE: 05/02/2020 PERFORMING PHYSICIAN: Javier Weathers MD. PROCEDURE PERFORMED: Successful stenting of the mid right coronary artery using 3.5 x 15 mm Xience KEN with an excellent angiographic results. INDICATION: This is a 70-year-old female patient who sees Dr. Schilling with coronary artery disease and prior coronary artery bypass grafting as well as stenting who was experiencing symptoms of chest discomfort and underwent a stress test and that revealed inferior ischemia. He did a heart catheterization on the patient and that revealed severe disease involving the mid right coronary artery proximal to a stented segment. Because of that, a PCI was advised. APPROACH: Right common femoral artery. COMPLICATION: None. LEVEL OF SEDATION: Moderate with sedation length of 16 minutes. PROCEDURE DESCRIPTION: Please refer to the diagnostic heart catheterization that was performed by Dr. Schilling earlier today. Anticoagulation was initiated using Angiomax. Subsequently, I did engage the right coronary artery using JR4 short tip guide. I did wire the right coronary artery using a run-through wire. I did direct stenting on the lesion using a 3.5 x 15 mm Xience KEN where the stent was positioned under fluoroscopy guidance and deployed under 16 atmospheres for 20 seconds. I post-dilated the stent using 3.5 mm NC balloon. The following angiogram showed excellent angiographic results and the procedure was completed without any complication. POSTPROCEDURE MANAGEMENT: 1. Dual anti-platelet therapy. 2. Risk factor modifications. 3. Follow up with the patient. MMODL / IJN: [id number] /
[2020-05-02 17:45] LABS: Glucose,Whole Blood 74 mg/dL (75-99)
[2020-05-02] MEDS: INSULIN ASPART (NovoLOG) 100 UNIT/ML VIAL SQ SCH (18:03)
[2020-05-02 19:52] LABS: Glucose,Whole Blood 102 mg/dL (75-99)
[2020-05-02] MEDS: METOPROLOL TARTRATE 50 MG TAB PO SCH (20:36)
[2020-05-02] MEDS ORDERED: ATORVASTATIN 80 MG TAB PO SCH (21:00)
[2020-05-02] MEDS ORDERED: AMITRIPTYLINE HCL 50 MG TAB PO SCH (21:00)
[2020-05-02] MEDS ORDERED: INSULIN DETEMIR (LEVEMIR) 100 UNIT/ML SYR SQ SCH (21:00)
[2020-05-03] MEDS ORDERED: LEVOTHYROXINE 125 MCG TAB PO SCH (06:30)
[2020-05-03 06:31] LABS: Glucose,Whole Blood 84 mg/dL (75-99)
[2020-05-03] MEDS: INSULIN ASPART (NovoLOG) 100 UNIT/ML VIAL SQ SCH (06:32)
[2020-05-03 07:44] VITALS: BP 107/70; PULSE 69; RESP 16; TEMP 98.2
[2020-05-03 08:34] LABS: Basophils % (A) 0 %; Eosinophils # (A) 0.3 k/uL (0-0.7); Eosinophils % (A) 3 %; HCT 35.4 % (34.0-46.0); HGB 11.4 gm/dL (11.4-16.0); Lymphocytes # (A) 1.9 k/uL (1.0-4.8); Lymphocytes % (A) 16 %; MCH 29.7 pg (25.0-35.0); MCHC 32.2 g/dL (31.0-37.0); MCV 92.1 fL (80.0-100.0); Mean Platelet Volume 7.5; Monocytes # (A) 0.6 k/uL (0-1.0); Monocytes % (A) 6 %; Neutrophils # (A) 8.6 k/uL (1.3-7.7); Neutrophils % (A) 74 %; Platelet Count 264 k/uL (150-450); RBC 3.85 m/uL (3.80-5.40); RDW 14.1 % (11.5-15.5); WBC 11.7 k/uL (3.8-10.6)
[2020-05-03 08:41] LABS: Calcium 10.5 mg/dL (8.4-10.2)
[2020-05-03] MEDS: METOPROLOL TARTRATE 50 MG TAB PO SCH (08:45)
[2020-05-03] MEDS ORDERED: allopurinoL 100 MG TAB PO SCH (09:00)
[2020-05-03] MEDS ORDERED: ASPIRIN 81 MG PO SCH (09:00)
[2020-05-03] MEDS ORDERED: CLOPIDOGREL 75 MG TAB PO SCH (09:00)
--- NOTE | 2020-05-03 13:50 | P.DS ---
Providers Attending physician: Vianney Schilling Consults: 05/02/20 12:45 Consult Physician Routine Consulting Provider: [facility] Consult Reason/Comments: Post Interventional patient Do you want consulting provider notified?: Already Contacted Primary care physician: [facility] Course: This is a pleasant 70-year-old female with history of previous bypass surgery who underwent cardiac catheterization yesterday with Dr. Dr. Schilling revealing a critical lesion involving the RCA prior to the previous stented area with a patent stent in the circumflex and diffuse disease involving the left coronary system. She underwent successful PCI of the RCA by Dr. Weathers. She had a 30 been on dual antiplatelet therapy. She is seen and examined sitting up in bed in no acute distress. Right femoral access site is clean, dry, nontender with very mild ecchymosis and no bleeding or bruising. No evidence of hematoma. Peripheral pulses intact. Blood pressure 107/70 heart rate 69 afebrile main taining oxygen saturation on room air. Laboratory data reviewed, WBC 11.7, hemoglobin 11.4, platelets 264, sodium 139, potassium 5.0 and creatinine 1.38. GENERAL: Well-appearing, well-nourished and in no acute distress. NECK: Supple without JVD or thyromegaly. LUNGS: Breath sounds clear to auscultation bilaterally. Respiration equal and unlabored. No wheezes, rales or rhonchi. HEART: Regular rate and rhythm with systolic ejection murmur at the base, no rubs or gallops. S1 and S2 heard. EXTREMITIES: Normal range of motion, no edema. No clubbing or cyanosis. Peripheral pulses intact. Right femoral access site clean, dry and intact with no tenderness, hematoma, bruising or bleeding. Mild ecchymosis noted. ASSESSMENT Coronary artery disease status post successful PCI maintained on dual antiplatelet therapy PLAN Patient will be discharged home. She is hemodynamically stable and free of chest discomfort. Continue dual antiplatelet therapy as previously ordered. Follow-up in the of [facility] with Dr. Schilling in one week. Nurse Practitioner note has been reviewed, I agree with a documented findings and plan of care. Patient was seen and examined. Patient Condition at Discharge: Stable Plan - Discharge Summary Discharge Rx Participant: No New Discharge Prescriptions: Continue allopurinoL [Zyloprim] 100 mg PO DAILY Aspirin EC [Ecotrin Low Dose] 81 mg PO DAILY Atorvastatin [Lipitor] 80 mg PO HS #30 tab Metoprolol Tartrate [Lopressor] 50 mg PO BID #60 tab Nitroglycerin Sl Tabs [Nitrostat] 0.4 mg SUBLINGUAL Q5M PRN #25 tab PRN Reason: Chest Pain Acetaminophen Tab [Tylenol] 500 mg PO BID PRN PRN Reason: Pain Or Fever > 100.5 Amitriptyline HCl [Elavil] 50 mg PO HS Levothyroxine Sodium [Synthroid] 250 mcg PO DAILY Insulin Glargine,Hum.rec.anlog [Lantus Solostar] 60 unit SQ HS Insulin Aspart [Insulin Aspart Flexpen] 20 unit SQ AC-TID Clopidogrel [Plavix] 75 mg PO DAILY #30 tab Cannabidiol (Cbd) [Epidiolex] 0 mg PO DIRECTED PRN PRN Reason: Pain Discharge Medication List allopurinoL [Zyloprim] 100 mg PO DAILY 08/03/15 [History] Aspirin EC [Ecotrin Low Dose] 81 mg PO DAILY 09/21/17 [History] Atorvastatin [Lipitor] 80 mg PO HS #30 tab 09/26/17 [Rx] Metoprolol Tartrate [Lopressor] 50 mg PO BID #60 tab 09/26/17 [Rx] Nitroglycerin Sl Tabs [Nitrostat] 0.4 mg SUBLINGUAL Q5M PRN #25 tab 09/26/17 [Rx] Acetaminophen Tab [Tylenol] 500 mg PO BID PRN 03/02/20 [History] Amitriptyline HCl [Elavil] 50 mg PO HS 03/02/20 [History] Insulin Aspart [Insulin Aspart Flexpen] 20 unit SQ AC-TID 03/02/20 [History] Insulin Glargine,Hum.rec.anlog [Lantus Solostar] 60 unit SQ HS 03/02/20 [History] Levothyroxine Sodium [Synthroid] 250 mcg PO DAILY 03/02/20 [History] Clopidogrel [Plavix] 75 mg PO DAILY #30 tab 03/08/20 [Rx] Cannabidiol (Cbd) [Epidiolex] 0 mg PO DIRECTED PRN 04/28/20 [History] Follow up Appointment(s)/Referral(s): Vianney Schilling MD [STAFF PHYSICIAN] - 05/09/20 2:15 pm Patient Instructions/Handouts: *[facility] - After Heart Catheterization - Certified Veterinary Technician Instructions Discharge Disposition: HOME SELF-CARE
== END 2020-05-03 10:36 | disposition home or self-care (01) ==
LOC: CATHCVL 09:19 → 3NCARDOBS 12:16 → CATHCVL 05-03 10:36
PROVIDERS: ATTEND Internal Medicine Cardiovascular Disease
DX: I25.10 Atherosclerotic heart disease of native coronary artery without angina pectoris (principal); Z95.5 Presence of coronary angioplasty implant and graft; Z95.1 Presence of aortocoronary bypass graft; Z79.82 Long term (current) use of aspirin; Z79.4 Long term (current) use of insulin; Z79.02 Long term (current) use of antithrombotics/antiplatelets; Z79.890 Hormone replacement therapy; Z79.899 Other long term (current) drug therapy
CPT/HCPCS: 93455; 80048 ×2; 85025 ×2; C9600; C1887 ×2; C1725; C1769 ×3; C1894; C1874; J2250; J2001; J3010; J0583; Q9967

== ENCOUNTER 2021-01-24 07:10 | Inpatient (IN) | payer OTHER, MEDICARE ==
[2021-01-24] MEDS ORDERED: NITROGLYCERIN OINT 1 INCH/GM PACKET TOPICAL STA (07:42)
[2021-01-24] MEDS ORDERED: ASPIRIN 81 MG PO STA (07:42)
[2021-01-24] MEDS ORDERED: SODIUM CHLORIDE 0.9% 500 ML 500 ML IV STA (07:42)
[2021-01-24] MEDS ORDERED: NITROGLYCERIN SL TABS 0.4 MG TAB SUBLINGUAL STA (08:05)
[2021-01-24 08:12] LABS: Basophils # (A) 0.1 k/uL (0-0.2); Basophils % (A) 1 %; Eosinophils # (A) 0.3 k/uL (0-0.7); Eosinophils % (A) 3 %; HCT 32.7 % (34.0-46.0); HGB 11.3 gm/dL (11.4-16.0); Lymphocytes # (A) 1.6 k/uL (1.0-4.8); Lymphocytes % (A) 16 %; MCH 33.1 pg (25.0-35.0); MCHC 34.7 g/dL (31.0-37.0); MCV 95.5 fL (80.0-100.0); Mean Platelet Volume 7.2; Monocytes # (A) 0.6 k/uL (0-1.0); Monocytes % (A) 6 %; Neutrophils # (A) 7.2 k/uL (1.3-7.7); Neutrophils % (A) 72 %; Platelet Count 325 k/uL (150-450); RBC 3.42 m/uL (3.80-5.40); RDW 14.4 % (11.5-15.5); WBC 9.9 k/uL (3.8-10.6)
--- NOTE | 2021-01-24 08:14 | ED ---
General Adult HPI - General Chief complaint: Chest Pain Stated complaint: Chest Pain Time Seen by Provider: 01/24/21 07:25 Source: patient, family, RN notes reviewed, old records reviewed Mode of arrival: wheelchair Limitations: no limitations - History of Present Illness Initial comments: This is a 71-year-old female with past medical history significant for a valve replacement and AR. Patient also is diabetic hypertensive high cholesterol. Patient comes in today stating that she's had chest pain for about 45 minutes. Patient home she took nitroglycerin and that relieved some of her pain. Patient states she still has some discomfort which radiates to her arm. Patient denies any shortness of breath or diaphoretic episodes. Patient denies any nausea. Patient states the pain is very similar to the pain she had when she had her heart attack. Patient denies any abdominal pain patient denies any vomiting or diarrhea. Patient denies headache patient denies lightheadedness or dizziness. - Related Data Home Medications Medication Instructions Recorded Confirmed allopurinoL [Zyloprim] 100 mg PO DAILY 08/03/15 01/24/21 Aspirin EC [Ecotrin Low Dose] 81 mg PO DAILY 09/21/17 01/24/21 Acetaminophen Tab [Tylenol] 500 mg PO BID PRN 03/02/20 01/24/21 Amitriptyline HCl [Elavil] 50 mg PO HS 03/02/20 01/24/21 Insulin Aspart [Insulin Aspart 20 unit SQ AC-TID 03/02/20 01/24/21 Flexpen] Insulin Glargine,Hum.rec.anlog 60 unit SQ HS 03/02/20 01/24/21 [Lantus Solostar] Levothyroxine Sodium [Synthroid] 200 mcg PO DAILY 01/24/21 01/24/21 Polyethylene Glycol 3350 [Miralax] 17 gm PO DAILY PRN 01/24/21 01/24/21 Previous Rx's Medication Instructions Recorded Atorvastatin [Lipitor] 80 mg PO HS #30 tab 09/26/17 Metoprolol Tartrate [Lopressor] 50 mg PO BID #60 tab 09/26/17 Nitroglycerin Sl Tabs [Nitrostat] 0.4 mg SUBLINGUAL Q5M PRN #25 tab 09/26/17 Clopidogrel [Plavix] 75 mg PO DAILY #30 tab 03/08/20 Allergies Allergy/AdvReac Type Severity Reaction Status Date / Time Sulfa (Sulfonamide Allergy Unknown Verified 01/24/21 08:44 Antibiotics) ibuprofen [From Motrin] AdvReac Nausea, Verified 01/24/21 08:44 upset stomach Review of Systems ROS Statement: Those systems with pertinent positive or pertinent negative responses have been documented in the HPI. ROS Other: All systems not noted in ROS Statement are negative. Past Medical History Past Medical History: Coronary Artery Disease (CAD), CVA/TIA, Diabetes Mellitus, GERD/Reflux, Hyperlipidemia, Hypertension, Myocardial Infarction (AR), Osteoarthritis (OA), Thyroid Disorder, Vascular Disorder Additional Past Medical History / Comment(s): IDDM type II, neuropathy bilateral feet, CKD-pt states her labwork is being monitored, murmur, pt states she had prior CVA with no residual, past low back pain, gout bilateral great toes, R carpal tunnel syndrome, hypothyroid, UTI, constipation. Last Myocardial Infarction Date:: 2017 History of Any Multi-Drug Resistant Organisms: None Reported Past Surgical History: Adenoidectomy, Cardiac Valve Replacement, Coronary Bypass/CABG, Heart Catheterization, Joint Replacement, Orthopedic Surgery, Tonsillectomy Additional Past Surgical History / Comment(s): CABG/2 vessel-pt cannot recall year, PCI with 2 stents 2018, aortic valve replaced (pig valve), lumbar epidural injections, L knee arthroscopy, bilateral knee arthroplasty, R foot spur removed, D&C, colonoscopy Past Anesthesia/Blood Transfusion Reactions: Postoperative Nausea & Vomiting (PONV) Date of Last Stent Placement:: 03/08/20 Past Psychological History: No Psychological Hx Reported Smoking Status: Former smoker Past Alcohol Use History: None Reported Past Drug Use History: None Reported - Past Family History Father History Unknown: Yes Additional Family Medical History / Comment(s): Father in a MVA when pt was a child. Mother Family Medical History: Coronary Artery Disease (CAD), Diabetes Mellitus General Exam - General Exam Comments Initial Comments: GENERAL: Patient is well-developed and well-nourished. Patient is nontoxic and well- hydrated and is in mild distress. ENT: Neck is soft and supple. No significant lymphadenopathy is noted. Oropharynx is clear. Moist mucous membranes. Neck has full range of motion without eliciting any pain. EYES: The sclera were anicteric and conjunctiva were pink and moist. Extraocular movements were intact and pupils were equal round and reactive to light. Eyelids were unremarkable. PULMONARY: Unlabored respirations. Good breath sounds bilaterally. No audible rales rhonchi or wheezing was noted. CARDIOVASCULAR: There is a regular rate and rhythm without any murmurs gallops or rubs. ABDOMEN: Soft and nontender with normal bowel sounds. SKIN: Skin is clear with no lesions or rashes and otherwise unremarkable. NEUROLOGIC: Patient is alert and oriented x3. Cranial nerves II through XII are grossly intact. Motor and sensory are also intact. Normal speech, volume and content. Symmetrical smile. MUSCULOSKELETAL: Normal extremities with adequate strength and full range of motion. No lower extremity swelling or edema. No calf tenderness. LYMPHATICS: No significant lymphadenopathy is noted PSYCHIATRIC: Normal psychiatric evaluation. Limitations: no limitations Course Vital Signs 01/24/21 01/24/21 07:24 08:09 Temperature 97.7 F Pulse Rate 107 H 93 Respiratory 18 16 Rate Blood Pressure 155/65 152/74 O2 Sat by Pulse 98 99 Oximetry Medical Decision Making - Medical Decision Making EKG shows sinus tachycardia with a left bundle branch block that is not new at a rate of 106 bpm DC interval 162 QRS is 142 QT interval 34 QTC is 510. Patient's EKG shows no significant ST segment elevation or depression. I started the patient on heparin. I spoke with Dr. Alonso he did come down and see the patient and agreed with the heparin and wanted the patient admitted. I spoke [facility] agreed to take the patient I admitted the patient wrote admitting orders I continued heparin Nitropaste and I consult to cardiology. - Lab Data Result diagrams: 01/24/21 07:46 01/24/21 07:46 Lab Results 01/24/21 01/24/21 01/24/21 Range/Units 07:46 07:46 07:46 WBC 9.9 (3.8-10.6) k/uL RBC 3.42 L (3.80-5.40) m/uL Hgb 11.3 L (11.4-16.0) gm/dL Hct 32.7 L (34.0-46.0) % MCV 95.5 (80.0-100.0) fL MCH 33.1 (25.0-35.0) pg MCHC 34.7 (31.0-37.0) g/dL RDW 14.4 (11.5-15.5) % Plt Count 325 (150-450) k/uL MPV 7.2 Neutrophils % 72 % Lymphocytes % 16 % Monocytes % 6 % Eosinophils % 3 % Basophils % 1 % Neutrophils # 7.2 (1.3-7.7) k/uL Lymphocytes # 1.6 (1.0-4.8) k/uL Monocytes # 0.6 (0-1.0) k/uL Eosinophils # 0.3 (0-0.7) k/uL Basophils # 0.1 (0-0.2) k/uL PT 10.0 (9.0-12.0) sec INR 0.9 (<1.2) APTT 22.6 (22.0-30.0) sec D-Dimer 1.24 H (<0.60) mg/L FEU Sodium 139 (137-145) mmol/L Potassium 4.3 (3.5-5.1) mmol/L Chloride 105 (98-107) mmol/L Carbon Dioxide 24 (22-30) mmol/L Anion Gap 10 mmol/L BUN 32 H (7-17) mg/dL Creatinine 1.47 H (0.52-1.04) mg/dL Est GFR (CKD-EPI)AfAm 41 (>60 ml/min/1.73 sqM) Est GFR (CKD-EPI)NonAf 35 (>60 ml/min/1.73 sqM) Glucose 186 H (74-99) mg/dL Calcium 10.0 (8.4-10.2) mg/dL Magnesium 1.9 (1.6-2.3) mg/dL Total Bilirubin 0.5 (0.2-1.3) mg/dL AST 29 (14-36) U/L ALT 23 (4-34) U/L Alkaline Phosphatase 126 (38-126) U/L Troponin I (0.000-0.034) ng/mL NT-Pro-B Natriuret Pep pg/mL Total Protein 7.4 (6.3-8.2) g/dL Albumin 4.2 (3.5-5.0) g/dL 01/24/21 01/24/21 Range/Units 07:46 07:46 WBC (3.8-10.6) k/uL RBC (3.80-5.40) m/uL Hgb (11.4-16.0) gm/dL Hct (34.0-46.0) % MCV (80.0-100.0) fL MCH (25.0-35.0) pg MCHC (31.0-37.0) g/dL RDW (11.5-15.5) % Plt Count (150-450) k/uL MPV Neutrophils % % Lymphocytes % % Monocytes % % Eosinophils % % Basophils % % Neutrophils # (1.3-7.7) k/uL Lymphocytes # (1.0-4.8) k/uL Monocytes # (0-1.0) k/uL Eosinophils # (0-0.7) k/uL Basophils # (0-0.2) k/uL PT (9.0-12.0) sec INR (<1.2) APTT (22.0-30.0) sec D-Dimer (<0.60) mg/L FEU Sodium (137-145) mmol/L Potassium (3.5-5.1) mmol/L Chloride (98-107) mmol/L Carbon Dioxide (22-30) mmol/L Anion Gap mmol/L BUN (7-17) mg/dL Creatinine (0.52-1.04) mg/dL Est GFR (CKD-EPI)AfAm (>60 ml/min/1.73 sqM) Est GFR (CKD-EPI)NonAf (>60 ml/min/1.73 sqM) Glucose (74-99) mg/dL Calcium (8.4-10.2) mg/dL Magnesium (1.6-2.3) mg/dL Total Bilirubin (0.2-1.3) mg/dL AST (14-36) U/L ALT (4-34) U/L Alkaline Phosphatase (38-126) U/L Troponin I 0.243 H* (0.000-0.034) ng/mL NT-Pro-B Natriuret Pep 1440 pg/mL Total Protein (6.3-8.2) g/dL Albumin (3.5-5.0) g/dL Critical Care Time Critical Care Time: Yes Total Critical Care Time: 35 Disposition Clinical Impression: Acute non-ST elevation myocardial infarction (NSTEMI) Disposition: ADMITTED IP TO THIS HOSP Referrals: None,Stated [Primary Care Provider] - 1-2 days Time of Disposition: 09:56
--- NOTE | 2021-01-24 08:16 | XR ---
EXAMINATION TYPE: XR chest 2V DATE OF EXAM: 01/24/2021 COMPARISON: Chest x-ray 03/05/2020, CT 03/03/2020 HISTORY: Chest pain TECHNIQUE: Frontal and lateral views of the chest are obtained. FINDINGS: There is no focal air space opacity, pleural effusion, or pneumothorax seen. The cardiac silhouette size is stable. Patient is post median sternotomy. There is thoracic spondylosis. Interst itium is increased. The osseous structures are intact. IMPRESSION: Difficult to exclude early interstitial edema.
[2021-01-24 08:23] LABS: Albumin 4.2 g/dL (3.5-5.0); Magnesium 1.9 mg/dL (1.6-2.3); Potassium 4.3 mmol/L (3.5-5.1); Total Bilirubin 0.5 mg/dL (0.2-1.3); Total Protein 7.4 g/dL (6.3-8.2)
[2021-01-24 08:38] LABS: INR 0.9 (<1.2); Partial Thromboplastin Time 22.6 sec (22.0-30.0)
[2021-01-24] MEDS ORDERED: HEPARIN SODIUM 1,000 UN/ML (10ML VL) IV STA (09:01)
[2021-01-24] MEDS ORDERED: HEPARIN SOD,PORK IN 0.45% NACL 25,000 UNIT in 0.45% NACL 1 250ML.BAG IV SCH (09:15)
[2021-01-24 09:34] LABS: D-Dimer 1.24 mg/L FEU (<0.60)
[2021-01-24] MEDS ORDERED: SODIUM CHLORIDE 0.9% 1,000 ML in EMPTY BAG 1 BAG IV ONE (09:39)
[2021-01-24] MEDS ORDERED: ASPIRIN 325 MG TAB PO STA (09:39)
[2021-01-24] MEDS ORDERED: ATORVASTATIN 80 MG TAB PO STA (09:39)
[2021-01-24] MEDS ORDERED: ALPRAZolam 0.25 MG TAB PO PRN (09:39)
[2021-01-24] MEDS ORDERED: NITROGLYCERIN SL TABS 0.4 MG TAB SUBLINGUAL PRN ×3 (09:39→11:55)
[2021-01-24] MEDS ORDERED: ALPRAZolam 0.5 MG TAB PO PRN (09:39)
[2021-01-24] MEDS ORDERED: SODIUM CHLORIDE 0.9% 1,000 ML IV ONE (10:14)
--- NOTE | 2021-01-24 10:21 | CONS ---
CONSULTATION Mrs. Treadwell is a 71-year-old female who presents to the emergency room with symptoms of chest discomfort. The patient has a known history of aortic valve replacement with a bioprosthetic valve and coronary artery bypass grafting. She underwent a cardiac catheterization most recently in April of 2020 and at that time she had a patent GIRON to the LAD, occluded saphenous vein graft and significant obstructive disease in the right coronary artery. She had prior stent to the RCA and the left circumflex performed by Dr. Weathers. She presented to the emergency room with symptoms of chest discomfort and progressive dyspnea on exertion, somewhat reminding her of the symptoms she had prior to her intervention. She denies any dizziness or palpitation. No syncope. She has no clear PND nor orthopnea. The patient has some peripheral edema, but no significant palpitations. Her coronary risk factors are remarkable for history of diabetes, hypertension and hyperlipidemia. MEDICATIONS: Her medications include Lipitor 80 mg daily, Plavix 75 mg daily, aspirin once a day, metoprolol tartrate 50 mg twice a day, Synthroid, insulin, Zyloprim, and amitriptyline. REVIEW OF SYSTEMS: RESPIRATORY SYSTEM: She had dyspnea on exertion. No recent wheezing or cough. No history of obstructive lung disease. GI SYSTEM: No recent GI bleeding. No peptic ulcer disease. SYSTEM: No dysuria or hematuria. NERVOUS SYSTEM: No stroke or seizure. PHYSICAL EXAMINATION: She is a 71-year-old female, alert, oriented, no apparent distress. Blood pressure running in the 150s with a heart rate in 90s. HEAD: Normocephalic. Eyes sclerae anicteric. NECK: Good carotid upstroke, no bruit. LUNGS: Lungs with a few crackles at the bases. HEART: Regular rate and rhythm S1, S2. No S3 with systolic ejection murmur 2/6 heard at the base. No diastolic murmur. No rub. ABDOMEN: Soft and nontender. EXTREMITIES: Trace to 1+ edema. LAB DATA: Lab data revealed BUN and creatinine 32 and 1.47. Her troponin 0.243. Her NT proBNP is 1440. Her hemoglobin is 11.3. Her EKG revealed a sinus mechanism with left bundle branch block that was noted in the past. Her chest x-ray shows possible interstitial edema. IMPRESSION: 1. Symptoms of chest discomfort and dyspnea on exertion in a patient with known history of coronary artery disease and mild troponin elevation consistent with non STEMI, rule out progression of disease and possible stent stenosis. 2. History of coronary artery bypass grafting and aortic valve replacement. 3. History of hypertension. 4. Chronic kidney disease. 5. Diabetes. 6. Hyperlipidemia. RECOMMENDATION: I would recommend to proceed with repeat coronary angiography to assess her status and guide her treatment. I have discussed with her the findings. I have discussed the finding with Dr. Schilling who is her primary pasting inspector and the plan is to proceed with the procedure tentatively today and depending on the results of her testing, further recommendations will be made. Thank you for this consult. We will follow with you. MMODL / IJN: [id number] /
[2021-01-24] MEDS ORDERED: fentaNYL (PF) 50 MCG/ML 2 ML AMP ONE (10:27)
[2021-01-24] MEDS ORDERED: LIDOCAINE 1% INJ 10MG/ML (20 ML MDV) ONE (10:27)
[2021-01-24] MEDS ORDERED: fentaNYL (PF) 50 MCG/ML 2 ML AMP IV ONE (10:37)
[2021-01-24] MEDS ORDERED: MIDAZOLAM 2 MG/2 ML VIAL IV ONE (10:37)
[2021-01-24] MEDS ORDERED: LIDOCAINE 1% INJ 10MG/ML (20 ML MDV) SQ ONE (10:41)
--- NOTE | 2021-01-24 11:18 | P.CARDCATH ---
Date of Procedure: 01/24/21 Preoperative Diagnosis: Non-STEMI Postoperative Diagnosis: The same. Diffuse coronary artery disease with multiple lesions in the circumflex and also right coronary artery Procedure(s) Performed: Left heart catheterization without left ventriculography Description of Procedure: HISTORY: This is a 71-year-old female with history of diabetes venous bypass surgery and also valvular replacement who was admitted to the hospital with complaints of chest pain and shortness of breath and positive troponin. Patient has underlying left bundle-branch block. She is advised to have a cardiac catheterization for definitive diagnosis. Patient had multiple stents in the past. Her renal function is moderately impaired and patient and family were explained the risks and benefits of the procedure CONSENT:I have discussed the risks, benefits and alternative therapies for the above-mentioned procedure and for both sedation/analgesia as well as necessary blood product administration, if indicated, as they pertain to this patient. The patient has indicated understanding and acceptance of the risks and procedures discussed. PROCEDURE: Patient was brought to the lab in a fasting state. Patient was given some IV sedation. The right groin is infiltrated with lidocaine and right femoral artery was entered using Seldinger technique. A 5-Nigerien and 6-Nigerien dilators were used dilated artery. Because of previous scarring. A 6-Nigerien catheter was left in place and selective coronary arteriography was performed. Patient tolerated the procedure well. Patient was found to have multiple lesions and she went on to have stent placement by Dr. Villasenor Conscious Sedation: Versed 1mg Fentanyl 25 g Duration 18minutes HEMODYNAMICS: The aortic pressure is about 140/70. Left ventricular end- diastolic pressure is 15-20. There was no gradient across the aortic valve SELECTIVE CORONARY ARTERIOGRAPHY: LEFT MAIN: Normal length and free of occlusive disease THE LEFT ANTERIOR DESCENDING CORONARY ARTERY: . Moderate caliber vessel, totally occluded after giving rise to the small diagonal branch. The diagonal branch is small in caliber with diffuse disease with areas of 60-70% stenosis THE LEFT CIRCUMFLEX AND IS CORONARY ARTERY: Is a good caliber vessel with about 80-90% extent of lesion prior to the previous stented area. Has diffuse disease distally which is chronic THE RIGHT CORONARY ARTERY: This a dominant vessel with multiple lesions. There is a significant lesion prior to the previously stented area. There is also critical lesion in the distal RCA. Subtotal occlusion of the PDA branch. There are collaterals from the left circumflex to the distal RCA. The GIRON graft to the LAD: This was found to be patent previously. Not selectively studied to save the dye because of underlying kidney failure. LEFT VENTRICULOGRAPHY: Not performed FINAL IMPRESSION: Diffuse coronary artery disease with critical lesion in the proximal circumflex and multiple lesion RCA PLAN: And placement being done by Dr. Villasenor PROGNOSIS: Guarded
[2021-01-24] MEDS: HEPARIN SODIUM 1,000 UN/ML (10ML VL) IV ONE ×2 (11:24→11:45)
[2021-01-24] MEDS ORDERED: CLOPIDOGREL 75 MG TAB PO ONE (11:45)
[2021-01-24] MEDS ORDERED: CLOPIDOGREL 75 MG TAB ONE (11:46)
[2021-01-24] MEDS ORDERED: IOPAMIDOL-370 100ML BTL INJ ONE (11:49)
[2021-01-24] MEDS ORDERED: MAG HYDROX/AL HYDROX/SIMETH 30 ML CUP PO PRN (11:55)
[2021-01-24] MEDS ORDERED: ATROPINE SULFATE 0.1 MG/ML 10ML SYRINGE IV PRN (11:55)
[2021-01-24] MEDS ORDERED: RX INFO: IV CONTRAST WAS GIVEN 1 EACH MISC MISCELLANE PRN (11:55)
[2021-01-24] MEDS ORDERED: ZOLPIDEM 5 MG TAB PO PRN (11:55)
[2021-01-24] MEDS ORDERED: SODIUM CHLORIDE 0.9% 1,000 ML IV SCH (12:00)
[2021-01-24] MEDS ORDERED: NITROGLYCERIN OINT 1 INCH/GM PACKET TOPICAL SCH (12:00)
[2021-01-24 12:12] LABS: Glucose,Whole Blood 192 mg/dL (75-99)
--- NOTE | 2021-01-24 13:23 | PTCA ---
PERCUTANEOUSTRANS CORORONARY ANGIOGRAPHY DATE OF SERVICE: 01/24/2021 PERFORMING PHYSICIAN: Javier Weathers MD. PROCEDURE PERFORMED: 1. Successful stenting of the proximal left circumflex using 2.5 x 12 mm Xience drug- eluting stent with excellent angiographic results. 2. Successful stenting of the distal right coronary artery using 2.5 x 15 mm Xience drug-eluting stent with excellent angiographic results. 3. Successful stenting of the proximal right coronary artery using a 3.0 x 15 mm Xience drug-eluting stent with an excellent angiographic results. 4. INDICATION: This is a 71-year-old female patient who sees Dr. Schilling in the office, who presented to the hospital with chest discomfort. She underwent a heart catheterization and was found to have patent GIRON to LAD with severe disease involving unprotected LCX and RCA. APPROACH: Right common femoral artery. COMPLICATION: None. LEVEL OF SEDATION: Moderate with sedation length of 20 minutes. PROCEDURE DESCRIPTION: Please refer to diagnostic heart catheterization that was performed by Dr. Schilling earlier today. Anticoagulation was achieved with heparin and the patient was given a total of 10,000 units of heparin. ACT monitoring was performed throughout the procedure. I engaged the left main using an [id number] guide. I did wire the left circumflex using a run-through wire. I did direct stenting on the lesion in the left circumflex using 2.5 x 12 mm Xience drug-eluting stent where the stent was positioned under fluoroscopy guidance and deployed under 16 atmospheres for 20 seconds with the following angiogram showed excellent angiographic results. After that, I did engage the RCA using JR4 guide. I did direct stenting on the lesion in the distal RCA using 2.5 x 15 mm Xience drug-eluting stent where the stent again was positioned under fluoroscopy guidance and deployed under its nominal under 18 atmospheres for 20 seconds. For the lesion in the proximal left circumflex, I did direct stenting using 3.0 x 15 mm Xience drug-eluting stent where the stent again was positioned under fluoroscopy guidance and deployed under 18 atmospheres for 20 seconds. The following angiogram showed excellent angiographic results and the procedure was completed without any complication. POSTPROCEDURE MANAGEMENT: 1. Dual anti-platelet therapy. 2. Aggressive cholesterol control. 3. Risk factor modifications. 4. Follow up with the patient. MMODL / IJN: [id number] /
[2021-01-24] MEDS ORDERED: hydrALAZINE HCL 20 MG/ML 1 ML VIAL IVP STA (14:17)
[2021-01-24] MEDS ORDERED: hydrALAZINE HCL 20 MG/ML 1 ML VIAL ONE (14:18)
[2021-01-24] MEDS ORDERED: HYDROmorphone 0.5 MG/0.5 ML SYRINGE IVP PRN (15:51)
[2021-01-24] MEDS: NITROGLYCERIN OINT 1 INCH/GM PACKET TOPICAL SCH ×2 (16:38→22:51)
[2021-01-24 17:14] LABS: Glucose,Whole Blood 174 mg/dL (75-99)
--- NOTE | 2021-01-24 17:45 | ECHOF ---
Referral Reason:cad MEASUREMENTS -------- HEIGHT: 167.6 cm WEIGHT: 106.6 kg BP: IVSd: 0.9 cm (0.6 - 1.1) LVIDd: 4.6 cm (3.9 - 5.3) LVPWd: 1.1 cm (0.6 - 1.1) IVSs: 1.3 cm LVIDs: 2.8 cm LVPWs: 1.6 cm Ao Diam: 3.0 cm (2.0 - 3.7) AV Cusp: 1.6 cm (1.5 - 2.6) LA Diam: 2.9 cm (2.7 - 3.8) MV EXCURSION: 16.659 mm (> 18.000) MV EF SLOPE: 109 mm/s (70 - 150) EPSS: 1.0 cm MV E Montrell: 1.74 m/s MV DecT: 247 ms MV A Montrell: 1.35 m/s MV E/A Ratio: 1.29 AV maxP.71 mmHg AV meanP.76 mmHg RAP: 5.00 mmHg RVSP: 60.32 mmHg FINDINGS -------- This was a technically difficult study with suboptimal views. The left ventricular size is normal. Left ventricular wall thickness is normal. Overall left vent ricular systolic function is low-normal with, an EF between 50 - 55 %. The right ventricle is normal in size. The left atrial size is normal. The right atrial size is normal. Lumason used Peak/mean gradient across the Aortic Valve is 23.71mmHg / 12.76mmHg. Normally functioning bioprosth etic valve. The mitral valve leaflets are mildly thickened. Mild mitral annular calcification present. Mild m itral regurgitation is present. [id number] mitral stenosis. The tricuspid valve appears structurally normal. Mild tricuspid regurgitation present. There is m oderate pulmonary hypertension. The right ventricular systolic pressure, as measured by Doppler, is 60.32mmHg. There is no pulmonic regurgitation present. The aortic root size is normal. IVC Not well visulized. There is no pericardial effusion. CONCLUSIONS -------- 1. The left ventricular size is normal. 2. Left ventricular wall thickness is normal. 3. Overall left ventricular systolic function is low-normal with, an EF between 50 - 55 %. 4. Peak/mean gradient across the Aortic Valve is 23.71mmHg / 12.76mmHg. 5. Normally functioning bioprosthetic valve. 6. The mitral valve leaflets are mildly thickened. 7. Mild mitral annular calcification present. 8. Mild mitral regurgitation is present. 9. Ipel-hg-fqwbcsin mitral stenosis. 10. Mild tricuspid regurgitation present. 11. There is moderate pulmonary hypertension. 12. The right ventricular systolic pressure, as measured by Doppler, is 60.32mmHg. 13. There is no pericardial effusion. GAME ADVISOR: Paris Epstein RDCS
[2021-01-24] MEDS: INSULIN ASPART (NovoLOG) 100 UNIT/ML VIAL SQ SCH (17:49)
[2021-01-24] MEDS ORDERED: hydrALAZINE HCL 20 MG/ML 1 ML VIAL IVP PRN (18:30)
[2021-01-24 20:01] LABS: Glucose,Whole Blood 259 mg/dL (75-99)
[2021-01-24] MEDS: METOPROLOL TARTRATE 50 MG TAB PO SCH (20:33)
[2021-01-24] MEDS ORDERED: INSULIN DETEMIR (LEVEMIR) 100 UNIT/ML SYR SQ SCH (21:00)
--- NOTE | 2021-01-24 21:55 | P.HPIM ---
History of Present Illness This is a pleasant 46 years old female with past medical history of coronary artery disease status post cardiac stent, status post CABG, hypothyroidism, hypertension. CVA/TIA, diabetes mellitus, GERD, hyperlipidemia, osteoarthritis ,. Presents because of chest pain, with EKG showing left bundle branch block and sinus tachycardia at 106 with QTC 510. No bundle branch block seen in her previous EKG. patient was taken emergently to the cardiac tanbark laborer and underwent PCI to right coronary artery 2 proximal and distal and proximal circumflex x 1 Labs show an unremarkable CBC, BMP, liver enzymes except for elevated creatinine at 1.4, which is close to her baseline of 1.2-1.4 ProBNP is 1440. Echocardiogram showing ejection fraction of 50-55% Chest x-ray: No acute process. After the procedure patient was started on statin, aspirin and Plavix Review of Systems CONSTITUTIONAL: No fever, no malaise, no fatigue. HEENT: No recent visual problems or hearing problems. Denied any sore throat. CARDIOVASCULAR: No orthopnea, PND, no palpitations, no syncope. PULMONARY: No shortness of breath, no cough, no hemoptysis. GASTROINTESTINAL: No diarrhea, no nausea, no vomiting, no abdominal pain. No rmoactive bowel sounds. NEUROLOGICAL: No headaches, no weakness, no numbness. HEMATOLOGICAL: Denies any bleeding or petechiae. GENITOURINARY: Denies any burning micturition, frequency, or urgency. MUSCULOSKELETAL/RHEUMATOLOGICAL: Denies any joint pain, swelling, or any muscle pain. ENDOCRINE: Denies any polyuria or polydipsia. Past Medical History Past Medical History: Coronary Artery Disease (CAD), CVA/TIA, Diabetes Mellitus, GERD/Reflux, Hyperlipidemia, Hypertension, Myocardial Infarction (UT), Osteoarthritis (OA), Thyroid Disorder, Vascular Disorder Additional Past Medical History / Comment(s): IDDM type II, neuropathy bilateral feet, CKD-pt states her labwork is being monitored, murmur, pt states she had prior CVA with no residual, past low back pain, gout bilateral great toes, R carpal tunnel syndrome, hypothyroid, UTI, constipation. Last Myocardial Infarction Date:: 01/24/2021 History of Any Multi-Drug Resistant Organisms: None Reported Past Surgical History: Adenoidectomy, Cardiac Valve Replacement, Coronary Bypass/CABG, Heart Catheterization, Heart Catheterization With Stent, Joint Replacement, Orthopedic Surgery, Tonsillectomy Additional Past Surgical History / Comment(s): CABG/2 vessel-pt cannot recall year, PCI with 2 stents 2017, aortic valve replaced (pig valve), lumbar epidural injections, L knee arthroscopy, bilateral knee arthroplasty, R foot spur removed, D&C, colonoscopy Past Anesthesia/Blood Transfusion Reactions: Postoperative Nausea & Vomiting (PONV) Date of Last Stent Placement:: 01/24/2021 Past Psychological History: No Psychological Hx Reported Additional Psychological History / Comment(s): Pt denies any hx of depression. She resides in her apartment alone but thinks her reji with be living with her after discharge. She does not use any assistive device. She cannot afford a vehicle, she has a friend who gives her rides. Smoking Status: Former smoker Past Alcohol Use History: None Reported Additional Past Alcohol Use History / Comment(s): Pt started smoking in 1976 and quit in 2006 Past Drug Use History: None Reported Additional Drug Use History / Comment(s): occasional cbd oil - Past Family History Father History Unknown: Yes Additional Family Medical History / Comment(s): Father in a MVA when pt was a child. Mother Family Medical History: Coronary Artery Disease (CAD), Diabetes Mellitus Medications and Allergies Home Medications Medication Instructions Recorded Confirmed Type allopurinoL [Zyloprim] 100 mg PO DAILY 08/03/15 01/24/21 History Aspirin EC [Ecotrin Low Dose] 81 mg PO DAILY 09/21/17 01/24/21 History Atorvastatin [Lipitor] 80 mg PO HS #30 tab 09/26/17 01/24/21 Rx Metoprolol Tartrate [Lopressor] 50 mg PO BID #60 tab 09/26/17 01/24/21 Rx Nitroglycerin Sl Tabs [Nitrostat] 0.4 mg SUBLINGUAL Q5M PRN #25 tab 09/26/17 01/24/21 Rx Acetaminophen Tab [Tylenol] 500 mg PO BID PRN 03/02/20 01/24/21 History Amitriptyline HCl [Elavil] 50 mg PO HS 03/02/20 01/24/21 History Insulin Aspart [Insulin Aspart 20 unit SQ AC-TID 03/02/20 01/24/21 History Flexpen] Insulin Glargine,Hum.rec.anlog 60 unit SQ HS 03/02/20 01/24/21 History [Lantus Solostar] Clopidogrel [Plavix] 75 mg PO DAILY #30 tab 03/08/20 01/24/21 Rx Levothyroxine Sodium [Synthroid] 200 mcg PO DAILY 01/24/21 01/24/21 History Polyethylene Glycol 3350 [Miralax] 17 gm PO DAILY PRN 01/24/21 01/24/21 History Allergies Allergy/AdvReac Type Severity Reaction Status Date / Time Sulfa (Sulfonamide Allergy Unknown Verified 01/24/21 08:44 Antibiotics) ibuprofen [From Motrin] AdvReac Nausea, Verified 01/24/21 08:44 upset stomach Physical Exam Vitals: Vital Signs Temp Pulse Pulse Resp BP BP Pulse Ox 01/24/21 16:00 97.9 F 98 20 148/72 96 01/24/21 15:53 99 16 155/72 97 01/24/21 14:46 92 145/65 01/24/21 14:30 96 16 179/77 96 01/24/21 13:45 89 16 177/74 96 01/24/21 13:15 95 16 176/77 97 01/24/21 12:48 98 16 156/67 97 01/24/21 12:33 94 16 140/94 96 01/24/21 12:18 88 16 172/77 96 01/24/21 12:03 86 16 191/86 96 01/24/21 10:00 98 F 90 16 153/76 98 01/24/21 09:00 89 22 140/60 99 01/24/21 08:09 93 16 152/74 99 01/24/21 07:24 97.7 F 107 H 18 155/65 98 Intake and Output 01/24/21 01/24/21 01/24/21 06:59 14:59 22:59 Intake Total 100 350 Output Total 600 Balance 100 -250 Intake: IV 100 Intake, IV Titration 0 350 Amount Sodium Chloride 0.9% 1, 0 350 000 ml @ 75 mls/hr IV . [id number] [facility] Rx#:[id number] Output: Urine 600 Other: # Voids 1 Weight 106.594 kg GENERAL: The patient is alert and oriented x3, not in any acute distress. Well developed, well nourished. HEENT: Pupils are round and equally reacting to light. EOMI. No scleral icterus. No conjunctival pallor. Normocephalic, atraumatic. No pharyngeal erythema. No thyromegaly. CARDIOVASCULAR: S1 and S2 present. No murmurs, rubs, or gallops. PULMONARY: Chest is clear to auscultation, no wheezing or crackles. ABDOMEN: Soft, nontender, nondistended, normoactive bowel sounds. No palpable organomegaly. MUSCULOSKELETAL: No joint swelling or deformity. EXTREMITIES: No cyanosis, clubbing, or pedal edema. NEUROLOGICAL: Gross neurological examination did not reveal any focal deficits. SKIN: No rashes. No petechiae Results CBC & Chem 7: 01/24/21 07:46 01/24/21 07:46 Labs: Abnormal Lab Results - Last 24 Hours (Table) 01/24/21 01/24/21 01/24/21 Range/Units 07:46 07:46 07:46 RBC 3.42 L (3.80-5.40) m/uL Hgb 11.3 L (11.4-16.0) gm/dL Hct 32.7 L (34.0-46.0) % D-Dimer 1.24 H (<0.60) mg/L FEU BUN 32 H (7-17) mg/dL Creatinine 1.47 H (0.52-1.04) mg/dL Glucose 186 H (74-99) mg/dL POC Glucose (mg/dL) (75-99) mg/dL Troponin I (0.000-0.034) ng/mL 01/24/21 01/24/21 01/24/21 Range/Units 07:46 12:10 17:06 RBC (3.80-5.40) m/uL Hgb (11.4-16.0) gm/dL Hct (34.0-46.0) % D-Dimer (<0.60) mg/L FEU BUN (7-17) mg/dL Creatinine (0.52-1.04) mg/dL Glucose (74-99) mg/dL POC Glucose (mg/dL) 192 H 174 H (75-99) mg/dL Troponin I 0.243 H* (0.000-0.034) ng/mL 01/24/21 Range/Units 19:58 RBC (3.80-5.40) m/uL Hgb (11.4-16.0) gm/dL Hct (34.0-46.0) % D-Dimer (<0.60) mg/L FEU BUN (7-17) mg/dL Creatinine (0.52-1.04) mg/dL Glucose (74-99) mg/dL POC Glucose (mg/dL) 259 H (75-99) mg/dL Troponin I (0.000-0.034) ng/mL Thrombosis Risk Factor Assmnt - Choose All That Apply Any of the Below Risk Factors Present?: Yes Each Factor Represents 1 point: Medical pt on bed rest, Obesity (BMI >25) Each Risk Factor Represents 2 Points: Age 61-74 years Thrombosis Risk Factor Assessment Total Risk Factor Score: 4 Thrombosis Risk Factor Assessment Level: Moderate Risk Assessment and Plan Assessment: Acute non-STEMI with a new left bundle branch block status post emergent PCI to circumflex artery and RCA 2 Chronic kidney disease Hypertension Hyperlipidemia Diabetes mellitus Hypothyroidism History of CVA with no residual paresis History of GERD Osteoarthritis Plan: This is a pleasant 71 years old female who presents with non-STEMI, status post PCI to circumflex and RCA. With aspirin and Plavix and statin. Follow-up complaint operator recommendation. Monitor creatinine and if his worsening then consider nephrology consult Labs and medication were reviewed.. Continue same treatment. Continue with symptomatic treatment. Resume home medication. Monitor lytes and vitals. DVT and GI prophylaxis. Further recommendationsas per clinical course of the patient DVT prophylaxis: Subcutaneous heparin GI Prophylaxis: Pepcid
[2021-01-25 06:33] LABS: Glucose,Whole Blood 175 mg/dL (75-99)
[2021-01-25] MEDS ORDERED: HEPARIN SODIUM,PORCINE 2,500 UNIT in SODIUM CHLORIDE 0.9% 250 ML IRRIGATION PRN (07:00)
[2021-01-25] MEDS ORDERED: HEPARIN SODIUM,PORCINE 10,000 UNIT in SODIUM CHLORIDE 0.9% 1,000 ML IRRIGATION PRN (07:00)
[2021-01-25] MEDS: INSULIN ASPART (NovoLOG) 100 UNIT/ML VIAL SQ SCH ×2 (07:55→12:12)
[2021-01-25] MEDS: NITROGLYCERIN OINT 1 INCH/GM PACKET TOPICAL SCH (07:55)
[2021-01-25] MEDS: METOPROLOL TARTRATE 50 MG TAB PO SCH (07:56)
[2021-01-25 08:56] LABS: Calcium 9.9 mg/dL (8.4-10.2); Potassium 4.4 mmol/L (3.5-5.1)
[2021-01-25] MEDS ORDERED: ASPIRIN 81 MG PO SCH (09:00)
[2021-01-25] MEDS ORDERED: FAMOTIDINE 20 MG/2 ML VIAL IV SCH (09:00)
[2021-01-25] MEDS ORDERED: CLOPIDOGREL 75 MG TAB PO SCH (09:00)
[2021-01-25] MEDS ORDERED: HEPARIN SODIUM,PORCINE/PF 5,000 UNIT/0.5 ML SYRINGE SQ SCH (09:00)
[2021-01-25] MEDS ORDERED: ASPIRIN 325 MG TAB PO SCH (09:00)
--- NOTE | 2021-01-25 10:45 | P.PN ---
Subjective Progress Note Date: 01/25/21 HISTORY OF PRESENT ILLNESS: 71 year old female who underwent cardiac cath yesterday with Dr. Schilling. She underwent stenting to the proximal left circumflex, distal RCA, and proximal RCA by Dr. Weathers. Patient had patient GIRON to LAD. Patient examined this morning at the bedside. She denies chest pain or pressure. She denies shortness of breath. Patient's vital signs are stable. Creatinine improved to 1.28 today. Echocardiogram completed revealed ejection fraction 50-55%, normally functioning bioprosthetic valve, mild mitral regurgitation, mild to moderate mitral sten osis, mild tricuspid regurgitation, and moderate pulmonary hypertension. PHYSICAL EXAM: VITAL SIGNS: Reviewed. GENERAL: Well-developed in no acute distress. NECK: Supple. No JVD or thyromegaly LUNGS: Respirations even and unlabored. Lungs essentially clear to auscultation bilaterally. HEART: Regular rate and rhythm. S1 and S2 heard. Systolic murmur noted EXTREMITIES: Normal range of motion. No clubbing or cyanosis. Peripheral pulses intact. No lower extremity edema. Right groin soft with no hematoma noted. ASSESSMENT: Non-STEMI, s/p PCI to proximal left circumflex, distal RCA, and proximal RCA History of CABG and aortic valve replacement Hypertension Chronic kidney disease Diabetes Hyperlipidemia PLAN: Continue current cardiac medications Continue dual antiplatelet therapy with aspirin and Plavix Patient is stable for discharge home today from a cardiac standpoint She is to follow up outpatient with Dr. Schilling Nurse practitioner note has been reviewed by physician. Signing provider agrees with the documented findings, assessment, and plan of care. Objective - Vital Signs Vital signs: Vital Signs Temp 98.2 F 01/25/21 07:49 Pulse 85 01/25/21 07:49 Resp 16 01/25/21 07:49 BP 154/76 01/25/21 07:49 Pulse Ox 93 L 01/25/21 07:49 Intake & Output 01/24/21 01/25/21 01/25/21 18:59 06:59 18:59 Intake Total 450 240 Output Total 600 Balance -150 240 Weight 106.594 kg 107.7 kg Intake: IV 100 Intake, IV Titration 350 Amount Sodium Chloride 0.9% 1, 350 000 ml @ 75 mls/hr IV . [id number] [facility] Rx#:[id number] Oral 240 Output: Urine 600 Other: # Voids 1 - Labs CBC & Chem 7: 01/24/21 07:46 01/25/21 07:52 Labs: Abnormal Lab Results - Last 24 Hours (Table) 01/24/21 01/24/21 01/24/21 Range/Units 12:10 17:06 19:58 BUN (7-17) mg/dL Creatinine (0.52-1.04) mg/dL Glucose (74-99) mg/dL POC Glucose (mg/dL) 192 H 174 H 259 H (75-99) mg/dL 01/25/21 01/25/21 Range/Units 06:30 07:52 BUN 19 H (7-17) mg/dL Creatinine 1.28 H (0.52-1.04) mg/dL Glucose 154 H (74-99) mg/dL POC Glucose (mg/dL) 175 H (75-99) mg/dL
[2021-01-25 11:04] VITALS: BMI 38.3
[2021-01-25 11:54] LABS: Glucose,Whole Blood 77 mg/dL (75-99)
[2021-01-25 12:12] VITALS: BP 136/72; PULSE 78; RESP 20; TEMP 98
[2021-01-25] MEDS ORDERED: ATORVASTATIN 80 MG TAB PO SCH (21:00)
--- NOTE | 2021-01-25 22:37 | P.DS ---
Providers Date of admission: 01/24/21 09:57 Attending physician: Francisco Javier Hill MD Consults: 01/24/21 09:57 Consult Physician Urgent Consulting Provider: Kadi Alonso Consult Reason/Comments: Non-STEMI Do you want consulting provider notified?: Already Contacted 01/24/21 11:55 Consult Physician Routine Consulting Provider: [facility] Consult Reason/Comments: Post Interventional patient Do you want consulting provider notified?: Already Contacted Primary care physician: Stated None Hospital Course: Diagnoses: Acute non-STEMI with a new left bundle branch block status post emergent PCI to circumflex artery and RCA 2 Chronic kidney disease Hypertension Hyperlipidemia Diabetes mellitus Hypothyroidism History of CVA with no residual paresis History of GERD Osteoarthritis Hospital course: This is a pleasant 46 years old female with past medical history of coronary artery disease status post cardiac stent, status post CABG, hypothyroidism, hypertension. CVA/TIA, diabetes mellitus, GERD, hyperlipidemia, osteoarthritis,. Presents because of chest pain, with EKG showing left bundle branch block and sinus tachycardia at 106 with QTC 510. No bundle branch block seen in her previous EKG. patient was taken emergently to the cardiac director of cath lab and underwent PCI to right coronary artery 2 proximal and distal and proximal circumflex x 1 Labs show an unremarkable CBC, BMP, liver enzymes except for elevated creatinine at 1.4, which is close to her baseline of 1.2-1.4 ProBNP is 1440. Echocardiogram showing ejection fraction of 50-55% Chest x-ray: No acute process. After the procedure patient was started on statin, aspirin and Plavix On the day of discharge patient denies chest pain or dyspnea. No abdominal pain. No other new complaints Patient was cleared for discharge by taker off braker machine Problems and management plan were discussed with the patient and he verbalized understanding and acceptance Patient was found stable and can be discharged home however he needs follow-up as an outpatient. Patient was instructed to follow up with PCP [facility] within one week and patient agrees patient was instructed to follow up with her taker off braker machine in one week and she states she will follow-up , patient's wants staff to help her with the appointments physical exam Gen: patient is a AAOx3, no distress CVS: S1-S2, RRR, no murmur Lungs: B/L CTA, no wheezing Abdomen: soft, no distention, no tenderness, positive bowel sounds Extremity: no leg edema or induration Time spent more than 35 minutes Patient Condition at Discharge: Serious Plan - Discharge Summary Discharge Rx Participant: Yes New Discharge Prescriptions: Continue allopurinoL [Zyloprim] 100 mg PO DAILY Atorvastatin [Lipitor] 80 mg PO HS #30 tab Nitroglycerin Sl Tabs [Nitrostat] 0.4 mg SUBLINGUAL Q5M PRN #25 tab PRN Reason: Chest Pain Amitriptyline HCl [Elavil] 50 mg PO HS Insulin Glargine,Hum.rec.anlog [Lantus Solostar] 60 unit SQ HS Insulin Aspart [Insulin Aspart Flexpen] 20 unit SQ AC-TID Polyethylene Glycol 3350 [Miralax] 17 gm PO DAILY PRN PRN Reason: Constipation Aspirin EC [Ecotrin Low Dose] 81 mg PO DAILY #30 tab Metoprolol Tartrate [Lopressor] 50 mg PO BID #60 tab Clopidogrel [Plavix] 75 mg PO DAILY #30 tab Levothyroxine Sodium [Synthroid] 200 mcg PO DAILY Discontinued Acetaminophen Tab [Tylenol] 500 mg PO BID PRN PRN Reason: Pain Or Fever > 100.5 Discharge Medication List allopurinoL [Zyloprim] 100 mg PO DAILY 08/03/15 [History] Atorvastatin [Lipitor] 80 mg PO HS #30 tab 09/26/17 [Rx] Nitroglycerin Sl Tabs [Nitrostat] 0.4 mg SUBLINGUAL Q5M PRN #25 tab 09/26/17 [Rx] Amitriptyline HCl [Elavil] 50 mg PO HS 03/02/20 [History] Insulin Aspart [Insulin Aspart Flexpen] 20 unit SQ AC-TID 03/02/20 [History] Insulin Glargine,Hum.rec.anlog [Lantus Solostar] 60 unit SQ HS 03/02/20 [History] Levothyroxine Sodium [Synthroid] 200 mcg PO DAILY 01/24/21 [History] Polyethylene Glycol 3350 [Miralax] 17 gm PO DAILY PRN 01/24/21 [History] Aspirin EC [Ecotrin Low Dose] 81 mg PO DAILY #30 tab 01/25/21 [Rx] Clopidogrel [Plavix] 75 mg PO DAILY #30 tab 01/25/21 [Rx] Metoprolol Tartrate [Lopressor] 50 mg PO BID #60 tab 01/25/21 [Rx] Follow up Appointment(s)/Referral(s): [facility] [facility] [NON-STAFF] - (Can assist with transportation to appointments and possibly help with a shower chair.) Vianney Schilling MD [STAFF PHYSICIAN] - 01/26/21 3:00 pm [facility],[place] [NON-STAFF] - (Can help with obtaining a shower chair.) [facility],Clinic [Primary Care Provider] - 1-2 Days Patient Instructions/Handouts: Heart Attack (DC) Activity/Diet/Wound Care/Special Instructions: Heart healthy diet Activity is restricted until see your doctor - We recommend you follow-up with your primary care doctor in 1 week, call to make an appointment Discharge/Stand Alone Forms: Who Do I Call? Discharge Disposition: HOME SELF-CARE
[2021-01-26] MEDS ORDERED: FAMOTIDINE 20 MG TAB PO SCH (09:00)
[2021-01-26] MEDS ORDERED: ASPIRIN 81 MG PO SCH (09:00)
== END 2021-01-25 16:28 | disposition home or self-care (01) | DRG 247 ==
LOC: EC 07:10 → 3SCARD 09:57 → EC 10:08 → 3SCARD 10:37
PROVIDERS: ADMIT Internal Medicine; ATTEND Internal Medicine
PROC: B2131ZZ Fluoroscopy of Multiple Coronary Artery Bypass Grafts using Low Osmolar Contrast (ICD-10-PCS; 2021-01-24)
PROC: 027136Z Dilation of Coronary Artery, Two Arteries with Three Drug-eluting Intraluminal Devices, Percutaneous Approach (ICD-10-PCS; principal; 2021-01-24 16:15)
PROC: 4A023N7 Measurement of Cardiac Sampling and Pressure, Left Heart, Percutaneous Approach (ICD-10-PCS; 2021-01-24 16:15)
PROC: B2111ZZ Fluoroscopy of Multiple Coronary Arteries using Low Osmolar Contrast (ICD-10-PCS; 2021-01-24 16:15)
DX: I21.4 Non-ST elevation (NSTEMI) myocardial infarction (principal); I25.810 Atherosclerosis of coronary artery bypass graft(s) without angina pectoris; I25.2 Old myocardial infarction; I44.7 Left bundle-branch block, unspecified; I25.10 Atherosclerotic heart disease of native coronary artery without angina pectoris; Z82.49 Family history of ischemic heart disease and other diseases of the circulatory system; E11.40 Type 2 diabetes mellitus with diabetic neuropathy, unspecified; Z20.822 Contact with and (suspected) exposure to COVID-19; E11.22 Type 2 diabetes mellitus with diabetic chronic kidney disease; N18.9 Chronic kidney disease, unspecified; Z83.3 Family history of diabetes mellitus; Z95.3 Presence of xenogenic heart valve; I12.9 Hypertensive chronic kidney disease with stage 1 through stage 4 chronic kidney disease, or unspecified chronic kidney disease; I27.20 Pulmonary hypertension, unspecified; E03.9 Hypothyroidism, unspecified; Z95.5 Presence of coronary angioplasty implant and graft; R00.0 Tachycardia, unspecified; K21.9 Gastro-esophageal reflux disease without esophagitis; M19.90 Unspecified osteoarthritis, unspecified site; Z86.73 Personal history of transient ischemic attack (TIA), and cerebral infarction without residual deficits; E07.9 Disorder of thyroid, unspecified; Z87.891 Personal history of nicotine dependence; Z79.899 Other long term (current) drug therapy; Z79.82 Long term (current) use of aspirin; Z79.02 Long term (current) use of antithrombotics/antiplatelets; Z79.4 Long term (current) use of insulin; Z79.890 Hormone replacement therapy; E78.00 Pure hypercholesterolemia, unspecified
CPT/HCPCS: 36415; 71046; 80048; 80053; 83735; 83880; 84484; 85025; 85379; 85610; 85730; 87635; 93005; 93306; 93458; 96360; 96361; 99291